=== PATIENT | male | born 1970 | race Caucasian/White ===

== ENCOUNTER 2017-12-22 12:21 | Inpatient (IN) | payer OTHER ==
[2017-12-22 14:14] VITALS: BMI 21.7
--- NOTE | 2017-12-22 17:14 | HP ---
COWS - Scale Resting Pulse: 0= [place] 80 or Below Sweatin= Chills/Flushing Restless Observation: 3= Extraneous Movement Pupil Size: 2= Moderately Dilated Bone or Joint Aches: 2= Severe Diffuse Aches Runny Nose/ Eye Tearin= Runny Nose/Eyes GI Upset > 30mins: 3= Vomiting/Diarrhea Tremor Observation: 2= Slight Tremor Visible Yawning Observation: 2= >3x During Session Anxiety or Irritability: 2=Irritable/Anxious Goose Flesh Skin: 0=Smooth Skin COWS Score: 19 Admission ROS S - HPI Chief Complaint: i need help to stop using heroin and cocaine Allergies/Adverse Reactions: Allergies Allergy/AdvReac Type Severity Reaction Status Date / Time No Known Allergies Allergy Verified 12/22/17 16:28 History of Present Illness: this 47 years old male with heroin and cocaine dependence,seekig detox, withdrawal symptom,last treatment [facility] 02/11/17 to 02/12/17 weight loss nicotine dependence anxiety,depression,insomnia no significant period of sobriety Exam Limitations: No Limitations - Ebola screening Have you traveled outside of the country in the last 21 days: No Have you been sick,other than usual withdrawal symptoms: No - Review of Systems Constitutional: Chills, Loss of Appetite, Malaise, Night Sweats, Changes in sleep, Weakness, Unintentional Wgt. Loss EENT: reports: Tearing, Nose Congestion Respiratory: reports: No Symptoms reported Cardiac: reports: No Symptoms Reported GI: reports: Diarrhea, Nausea, Vomiting, Abdominal cramping : reports: No Symptoms Reported Musculoskeletal: reports: Back Pain, Joint Pain, Muscle Pain Integumentary: reports: Dryness Neuro: reports: Headache, Tremors Endocrine: reports: No Symptoms Reported Hematology: reports: No Symptoms Reported Psychiatric: reports: No Sypmtoms Reported, Judgement Intact, Mood/Affect Appropiate, Orientated x3, Agitated, Depressed (insomnia) Patient History - Patient Medical History Hx Anemia: No Hx Asthma: No Hx Chronic Obstructive Pulmonary Disease (COPD): No Hx Cancer: No Hx Cardiac Disorders: No Hx Congestive Heart Failure: No Hx Hypertension: No Hx Hypercholesterolemia: No Hx Pacemaker: No HX Cerebrovascular Accident: No Hx Seizures: No Hx Dementia: No Hx Diabetes: No Hx Gastrointestinal Disorders: No Hx Liver Disease: No Hx Genitourinary Disorders: No Hx Sexually Transmitted Disorders: No Hx Renal Disease (ESRD): No Hx Thyroid Disease: No Hx Human Immunodeficiency Virus (HIV): No (last 07/15 negative) Hx Hepatitis C: No Hx Depression: Yes (anxiety) Hx Suicide Attempt: No Hx Bipolar Disorder: No Hx Schizophrenia: No Other Medical History: insomnia,no suicidal,no homicidal - Patient Surgical History Past Surgical History: No Hx Neurologic Surgery: No Hx Cataract Extraction: No Hx Cardiac Surgery: No Hx Lung Surgery: No Hx Breast Surgery: No Hx Breast Biopsy: No Hx Abdominal Surgery: No Hx Appendectomy: No Hx Cholecystectomy: No Hx Genitourinary Surgery: No Hx Section: No Hx Orthopedic Surgery: No Anesthesia Reaction: No - PPD History Previous Implant?: Yes Documented Results: Negative w/o proof Implanted On Prior [facility] Admission?: Yes Date: 06/07/15 Results: negative PPD to be Administered?: Yes - Smoking Cessation Smoking history: Current every day smoker Have you smoked in the past 12 months: Yes Aproximately how many cigarettes per day: 10 Hx Chewing Tobacco Use: No Initiated information on smoking cessation: Yes 'Breaking Loose' booklet given: 12/22/17 - Substance & Tx. History Hx Alcohol Use: Yes Hx Substance Use: Yes Substance Use Type: Alcohol, Heroin Hx Substance Use Treatment: Yes ([facility] 02/11/[facility] to 02/12/17 not completed) - Substances Abused Heroin Route: Inhalation Frequency: Daily Amount used: 6 bags daily Age of first use: 45 Date of Last Use: 12/22/17 Alcohol Route: Oral Frequency: 3-6 times per week Amount used: 1 pint vodka, 1-2 bottles beer Age of first use: 32 Date of Last Use: 12/21/17 Family Disease History - Family Disease History Family Disease History: Diabetes: Mother (HTN), Heart Disease: Mother Admission Physical Exam BHS - Vital Signs Vital Signs: Vital Signs - 24 hr 12/22/17 14:12 Temperature 97.9 F Pulse Rate 70 Respiratory 20 Rate Blood Pressure 132/88 - Physical General Appearance: Yes: Moderate Distress, Tremorous, Irritable, Sweating, Anxious HEENTM: Yes: Normal ENT Inspection, Pharynx Normal Respiratory: Yes: Lungs Clear, Normal Breath Sounds, No Respiratory Distress Neck: Yes: Within Normal Limits, Supple, Trachea in good position Breast: Yes: Within Normal Limits Cardiology: Yes: Within Normal Limits, Regular Rhythm, Regular Rate, S1, S2 Abdominal: Yes: Within Normal Limits, Normal Bowel Sounds, Soft, Other (right direct inguinal hernia) Genitourinary: Yes: Within Normal Limits Back: Yes: Within Normal Limits, Muscle Spasm Musculoskeletal: Yes: full range of Motion, Back pain, Joint Stiffness, Muscle Pain Extremities: Yes: Within Normal Limits, Tremors 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, Fully Oriented, Alert, Motor Strength 5/5 Integumentary: Yes: Dry Lymphatic: Yes: Within Normal Limits - Diagnostic (1) Opioid dependence with withdrawal Current Visit: Yes Status: Acute (2) Alcohol dependence with uncomplicated withdrawal Current Visit: Yes Status: Acute (3) Bipolar 1 disorder Current Visit: Yes Status: Chronic (4) Insomnia Current Visit: Yes Status: Chronic (5) Nicotine dependence Current Visit: Yes Status: Chronic (6) Inguinal hernia Current Visit: Yes Status: Chronic Qualifiers: Obstruction and gangrene presence: without obstruction or gangrene Laterality: unilateral Cleared for Admission [facility] - Detox or Rehab [facility] Level of Care: Medically Managed Detox Regimen/Protocol: Methadone/Librium [facility] Breath Alcohol Content Breath Alcohol Content: 0 Urine Drug Screen - Results Drug Screen Negative: No Urine Drug Screen Results: MAGDY-Cocaine, OPI-Opiates
[2017-12-22] MEDS ORDERED: IBUPROFEN 400 MG TABLET (FP) PO PRN (17:28)
[2017-12-22] MEDS ORDERED: P-EPHED 60MG/TRIPROLIDI 2.5MG TABLET PO PRN (17:28)
[2017-12-22] MEDS ORDERED: NICOTINE POLACRILEX 2 MG GUM BC PRN (17:28)
[2017-12-22] MEDS ORDERED: LOPERAMIDE HCL 2 MG CAPSULE PO PRN (17:28)
[2017-12-22] MEDS ORDERED: MENTHOL/PHENOL 1 EACH UD MM PRN (17:28)
[2017-12-22] MEDS ORDERED: hydrOXYzine PAMOATE 50 MG CAPSULE (FP) PO PRN (17:28)
[2017-12-22] MEDS ORDERED: ACETAMINOPHEN 325 MG TABLET (FP) PO PRN (17:28)
[2017-12-22] MEDS ORDERED: MAGNESIUM CITRATE 300 ML BOTTLE PO PRN (17:28)
[2017-12-22] MEDS ORDERED: chlordiazePOXIDE HCL 25 MG CAPSULE PO ONE (17:28)
[2017-12-22] MEDS ORDERED: guaiFENesin/D-METHORPHAN HB 10 ML UNIT-DOSE CUPS PO PRN (17:28)
[2017-12-22] MEDS ORDERED: MAGNESIUM HYDROX 2400MG/30ML ORAL SUSPENSION 30 ML CUP PO PRN (17:28)
[2017-12-22] MEDS ORDERED: MAG HYDROX/AL HYDROX/SIMETH 30 ML UNIT-DOSE CUP PO PRN (17:28)
[2017-12-22] MEDS ORDERED: chlordiazePOXIDE HCL 25 MG CAPSULE PO PRN ×3 (17:28→17:38)
[2017-12-22] MEDS ORDERED: METHADONE HCL 10 MG TABLET (FOR DETOX USE ONLY) PO ONE ×2 (17:32→23:00)
[2017-12-22] MEDS: NICOTINE 21 MG/24 HOURS TOPICAL PATCH TD SCH (18:55)
[2017-12-22] MEDS ORDERED: MELATONIN 5 MG TABLETS PO PRN (22:00)
[2017-12-22] MEDS: chlordiazePOXIDE HCL 25 MG CAPSULE PO SCH (22:46)
[2017-12-22] MEDS: THIAMINE HCL 100 MG TABLET (FP) PO SCH (22:46)
[2017-12-22] MEDS ORDERED: chlordiazePOXIDE HCL 25 MG CAPSULE PO SCH (23:00)
[2017-12-22 23:05] LABS: URINE APPEARANCE CLEAR; URINE BILIRUBIN NEGATIVE (<2.0 mg/dL); URINE COLOR AMBER; URINE GLUCOSE (UA) NEGATIVE (NEGATIVE); URINE KETONE TRACE (NEGATIVE); URINE LEUK ESTERASE NEGATIVE (NEGATIVE); URINE NITRITE NEGATIVE (NEGATIVE)
[2017-12-22 23:08] LABS: URINE PROTEIN 1+ (NEGATIVE)
[2017-12-22 23:09] LABS: EPI CELLS RARE /HPF (FEW); URINE MUCUS MANY
[2017-12-23] MEDS: chlordiazePOXIDE HCL 25 MG CAPSULE PO SCH ×4 (05:56→22:45)
--- NOTE | 2017-12-23 07:06 | CONSULT ---
[facility] Psychiatric Consult - Data Date of interview: 12/23/17 Admission source: Self-referred Identifying data: Mr Foster is a 47 years old male, father of 6 children, unemployed on SSI, homeless seeking detox treatment for alcohol and opioid Substance Abuse History: Reports history of alcohol and heroin use. Refer to addiction counselor's summary for further information Medical History: Unremarkable. Smokes 10 cigarettes daily Psychiatric History: Patient denies history of previous psychiatric treatment Physical/Sexual Abuse/Trauma History: Denies history of emotional, physical or sexual abuse as well as DV relationship Additional Comment: Reports history of one previous arrests on charges of armed robbery(felony). Reports seving 5 years in shelter. Denies being on parole at present Mental Status Exam - Mental Status Exam Alert and Oriented to: Time, Place, Person Cognitive Function: Fair Patient Appearance: Well Groomed Mood: Hopeful, Euthymic Patient Behavior: Cooperative Speech Pattern: Clear Voice Loudness: Normal Thought Process: Intact Hallucinations: Denies Suicidal Ideation: Denies Homicidal Ideation: Denies Insight/Judgement: Fair Sleep: Poorly Appetite: Good Muscle strength/Tone: Normal Gait/Station: Normal Psychiatric Findings - Problem List ([place] 1, 2,3) (1) Substance-induced sleep disorder Current Visit: Yes Status: Acute (2) Alcohol dependence with uncomplicated withdrawal Current Visit: No Status: Acute (3) Opioid dependence with withdrawal Current Visit: No Status: Acute (4) Nicotine dependence Current Visit: No Status: Chronic - Initial Treatment Plan Initial Treatment Plan: 1) Start Ambien 10 mg po HS prn for insomnia. Discussed Benefit vs Risks of medication with patient and he agreed to try it. 2) Continue inpatient detoxification
[2017-12-23 09:37] LABS: HEMATOCRIT 35.4 % (35.4-49); MCH 29.4 pg (25.7-33.7); MCHC 33.8 g/dl (32.0-35.9); MEAN PLT VOLUME 8.6 fl (7.5-11.1); PLATELET COUNT 283 K/MM3 (134-434); RBC 4.07 M/mm3 (4.00-5.60); RDW 13.3 % (11.9-15.9); WHITE BLOOD COUNT 7.8 K/mm3 (4.0-10.0)
[2017-12-23 09:38] LABS: ALBUMIN 3.2 g/dl (3.4-5.0); ANION GAP 6 (8-16); BLOOD UREA NITROGEN 19 mg/dL (7-18); CALCIUM 8.1 mg/dL (8.5-10.1); CHLORIDE 105 mmol/L (98-107); CO2 28 mmol/L (21-32); GLUCOSE,RANDOM 85 mg/dL (74-106); POTASSIUM 3.8 mmol/L (3.5-5.1); SODIUM 139 mmol/L (136-145)
[2017-12-23 09:41] LABS: ALK PHOS 68 U/L (45-117); BILIRUBIN,TOTAL 0.2 mg/dL (0.2-1.0); CREATININE 0.9 mg/dL (0.7-1.3); SGOT/AST 13 U/L (15-37); SGPT/ALT 20 U/L (12-78)
[2017-12-23] MEDS ORDERED: METHADONE HCL 10 MG TABLET (FOR DETOX USE ONLY) PO SCH (10:00)
--- NOTE | 2017-12-23 10:06 | EKG ---
Test Reason : Blood Pressure : / mmHG Vent. Rate : 054 BPM Atrial Rate : 054 BPM P-R Int : 140 ms QRS Dur : 096 ms QT Int : 470 ms P-R-T Axes : 072 061 065 degrees QTc Int : 445 ms SINUS BRADYCARDIA MODERATE VOLTAGE CRITERIA FOR LVH, MAY BE NORMAL VARIANT NONSPECIFIC T WAVE ABNORMALITY ABNORMAL ECG WHEN COMPARED WITH ECG OF 22-DEC-2017 18:45, NONSPECIFIC T WAVE ABNORMALITY NOW EVIDENT IN LATERAL LEADS Confirmed by JEFFREY HARP, KATIE ([id number]) on 12/23/2017 10:06:22 AM Referred By: Jong Bowers Confirmed By:KATIE MURPHY MD
--- NOTE | 2017-12-23 10:06 | EKG ---
Test Reason : Blood Pressure : / mmHG Vent. Rate : 055 BPM Atrial Rate : 055 BPM P-R Int : 134 ms QRS Dur : 088 ms QT Int : 454 ms P-R-T Axes : 084 063 058 degrees QTc Int : 434 ms POOR DATA QUALITY, INTERPRETATION MAY BE ADVERSELY AFFECTED SINUS BRADYCARDIA POSSIBLE LEFT ATRIAL ENLARGEMENT LEFT VENTRICULAR HYPERTROPHY ABNORMAL ECG NO PREVIOUS ECGS AVAILABLE Confirmed by JEFFREY HARP, KATIE ([id number]) on 12/23/2017 10:06:05 AM Referred By: Jong Bowers Confirmed By:KATIE MURPHY MD
[2017-12-23] MEDS: PRENATAL VITAMINS W/ FOLIC ACID TABLET (FP) PO SCH (10:35)
[2017-12-23] MEDS: NICOTINE 21 MG/24 HOURS TOPICAL PATCH TD SCH (10:37)
--- NOTE | 2017-12-23 18:24 | PN ---
[facility] CIWA - CIWA Score Nausea/Vomitin Muscle Tremors: 4-Moderate,w/Arms Extend Anxiety: 4-Mod. Anxious/Guarded Agitation: 3 Paroxysmal Sweats: 3 Orientation: 0-Oriented Tacttile Disturbances: 1-Very Mild Itch/Numbness Auditory Disturbances: 0-None Visual Disturbances: 0-None Headache: 1-Very Mild CIWA-Ar Total Score: 19 S COWS - Scale Resting Pulse: 0= [place] 80 or Below Sweatin= Chills/Flushing Restless Observation: 3= Extraneous Movement Pupil Size: 1= Pupils >than Normal Bone or Joint Aches: 2= Severe Diffuse Aches Runny Nose/ Eye Tearin= Runny Nose/Eyes GI Upset > 30mins: 2= Nausea/Diarrhea Tremor Observation of Outstretched Hands: 2= Slight Tremor Visible Yawning Observation: 1= 1-2x During Session Anxiety or Irritability: 2=Irritable/Anxious Goose Flesh Skin: 0=Smooth Skin COWS Score: 16 S Progress Note (SOAP) Subjective: Tremor, interrupted sleep, sweating Objective: 12/23/17 18:23 Last Vital Signs Temp Pulse Resp BP Pulse Ox 97.8 F 78 18 118/80 12/23/17 15:29 12/23/17 15:29 12/23/17 15:29 12/23/17 15:29 Laboratory Tests 12/22/17 12/23/17 12/23/17 22:20 07:45 07:45 WBC 7.8 RBC 4.07 Hgb 12.0 D Hct 35.4 MCV 87.0 MCH 29.4 MCHC 33.8 RDW 13.3 Plt Count 283 MPV 8.6 Sodium 139 Potassium 3.8 Chloride 105 Carbon Dioxide 28 Anion Gap 6 L BUN 19 H D Creatinine 0.9 D Creat Clearance w eGFR > 60 Random Glucose 85 Calcium 8.1 L Total Bilirubin 0.2 D AST 13 L ALT 20 D Alkaline Phosphatase 68 D Total Protein 6.0 L Albumin 3.2 L Urine Color Ksenia Urine Appearance Clear Urine pH 5.0 D Ur Specific [place] 1.034 Urine Protein 1+ H Urine Glucose (UA) Negative Urine Ketones Trace H Urine Blood Negative Urine Nitrite Negative Urine Bilirubin Negative Urine Urobilinogen 2.0 Ur Leukocyte Esterase Negative Urine WBC (Auto) 1 Urine RBC (Auto) 1 Ur Epithelial Cells Rare Urine Mucus Many RPR Titer 12/23/17 07:45 WBC RBC Hgb Hct MCV MCH MCHC RDW Plt Count MPV Sodium Potassium Chloride Carbon Dioxide Anion Gap BUN Creatinine Creat Clearance w eGFR Random Glucose Calcium Total Bilirubin AST ALT Alkaline Phosphatase Total Protein Albumin Urine Color Urine Appearance Urine pH Ur Specific [place] Urine Protein Urine Glucose (UA) Urine Ketones Urine Blood Urine Nitrite Urine Bilirubin Urine Urobilinogen Ur Leukocyte Esterase Urine WBC (Auto) Urine RBC (Auto) Ur Epithelial Cells Urine Mucus RPR Titer Nonreactive Labs reviewed: abnormal UA Assessment: 12/23/17 18:23 Withdrawal symptoms Noted with abnormal UA Plan: Continue detox Abnormal UA: encouraged PO water hydration, repeat UA
[2017-12-23] MEDS: THIAMINE HCL 100 MG TABLET (FP) PO SCH (22:45)
[2017-12-23] MEDS: ZOLPIDEM TARTRATE 5 MG TABLET PO PRN (22:46)
[2017-12-23] MEDS ORDERED: chlordiazePOXIDE HCL 25 MG CAPSULE PO SCH (23:00)
[2017-12-24] MEDS: chlordiazePOXIDE HCL 25 MG CAPSULE PO SCH ×3 (05:41→18:15)
[2017-12-24 10:35] LABS: URINE APPEARANCE CLEAR; URINE BILIRUBIN NEGATIVE (<2.0 mg/dL); URINE COLOR LTYELLOW; URINE GLUCOSE (UA) NEGATIVE (NEGATIVE); URINE KETONE NEGATIVE (NEGATIVE); URINE LEUK ESTERASE NEGATIVE (NEGATIVE); URINE NITRITE NEGATIVE (NEGATIVE); URINE PROTEIN NEGATIVE (NEGATIVE); URINE UROBILINOGEN NEGATIVE mg/dL (0.2-1.0)
[2017-12-24] MEDS: PRENATAL VITAMINS W/ FOLIC ACID TABLET (FP) PO SCH (10:39)
[2017-12-24] MEDS: METHADONE HCL 5 MG TABLET (FOR DETOX USE ONLY) PO SCH (10:39)
[2017-12-24] MEDS: NICOTINE 21 MG/24 HOURS TOPICAL PATCH TD SCH (10:39)
--- NOTE | 2017-12-24 19:20 | PN ---
S CIWA - CIWA Score Nausea/Vomitin Muscle Tremors: 3 Anxiety: 2 Agitation: 3 Paroxysmal Sweats: 3 Orientation: 0-Oriented Tacttile Disturbances: 0-None Auditory Disturbances: 0-None Visual Disturbances: 0-None Headache: 0-None Present CIWA-Ar Total Score: 14 [facility] COWS - Scale Resting Pulse: 0= [place] 80 or Below Sweatin=Flushed/Facial Moisture Restless Observation: 3= Extraneous Movement Pupil Size: 0= Normal to Room Light Bone or Joint Aches: 1= Mild Discomfort Runny Nose/ Eye Tearin= Nasal Congestion GI Upset > 30mins: 2= Nausea/Diarrhea Tremor Observation of Outstretched Hands: 2= Slight Tremor Visible Yawning Observation: 1= 1-2x During Session Anxiety or Irritability: 1=Feels Anxious/Irritable Goose Flesh Skin: 0=Smooth Skin COWS Score: 13 [facility] Progress Note (SOAP) Subjective: sleep disturbance sweats shakes Objective: 12/24/17 19:18 A & O x 3 Ambulating steadily within unit Vital Signs Temperature 98.2 F 12/24/17 18:30 Pulse Rate 68 12/24/17 18:30 Respiratory Rate 16 12/24/17 18:30 Blood Pressure 107/63 12/24/17 18:30 O2 Sat by Pulse Oximetry (%) Laboratory Last Values WBC 7.8 K/mm3 (4.0-10.0) 12/23/17 07:45 RBC 4.07 M/mm3 (4.00-5.60) 12/23/17 07:45 Hgb 12.0 GM/dL (11.7-16.9) D 12/23/17 07:45 Hct 35.4 % (35.4-49) 12/23/17 07:45 MCV 87.0 fl (80-96) 12/23/17 07:45 MCH 29.4 pg (25.7-33.7) 12/23/17 07:45 MCHC 33.8 g/dl (32.0-35.9) 12/23/17 07:45 RDW 13.3 % (11.9-15.9) 12/23/17 07:45 Plt Count 283 K/MM3 (134-434) 12/23/17 07:45 MPV 8.6 fl (7.5-11.1) 12/23/17 07:45 Sodium 139 mmol/L (136-145) 12/23/17 07:45 Potassium 3.8 mmol/L (3.5-5.1) 12/23/17 07:45 Chloride 105 mmol/L (98-107) 12/23/17 07:45 Carbon Dioxide 28 mmol/L (21-32) 12/23/17 07:45 Anion Gap 6 (8-16) L 12/23/17 07:45 BUN 19 mg/dL (7-18) H D 12/23/17 07:45 Creatinine 0.9 mg/dL (0.7-1.3) D 12/23/17 07:45 Creat Clearance w eGFR > 60 (>60) 12/23/17 07:45 Random Glucose 85 mg/dL (74-106) 12/23/17 07:45 Calcium 8.1 mg/dL (8.5-10.1) L 12/23/17 07:45 Total Bilirubin 0.2 mg/dL (0.2-1.0) D 12/23/17 07:45 AST 13 U/L (15-37) L 12/23/17 07:45 ALT 20 U/L (12-78) D 12/23/17 07:45 Alkaline Phosphatase 68 U/L (45-117) D 12/23/17 07:45 Total Protein 6.0 g/dl (6.4-8.2) L 12/23/17 07:45 Albumin 3.2 g/dl (3.4-5.0) L 12/23/17 07:45 Urine Color Ltyellow 12/24/17 08:20 Urine Appearance Clear 12/24/17 08:20 Urine pH 6.0 (5.0-8.0) 12/24/17 08:20 Ur Specific [place] 1.014 (1.001-1.035) 12/24/17 08:20 Urine Protein Negative (NEGATIVE) 12/24/17 08:20 Urine Glucose (UA) Negative (NEGATIVE) 12/24/17 08:20 Urine Ketones Negative (NEGATIVE) 12/24/17 08:20 Urine Blood Negative (NEGATIVE) 12/24/17 08:20 Urine Nitrite Negative (NEGATIVE) 12/24/17 08:20 Urine Bilirubin Negative (<2.0 mg/dL) 12/24/17 08:20 Urine Urobilinogen Negative mg/dL (0.2-1.0) 12/24/17 08:20 Ur Leukocyte Esterase Negative (NEGATIVE) 12/24/17 08:20 Urine WBC (Auto) 1 /hpf (3-5) 12/22/17 22:20 Urine RBC (Auto) 1 /hpf (0-3) 12/22/17 22:20 Ur Epithelial Cells Rare /HPF (FEW) 12/22/17 22:20 Urine Mucus Many 12/22/17 22:20 RPR Titer Nonreactive (NONREACTIVE) 12/23/17 07:45 labs noted Assessment: 12/24/17 19:19 withdrawal sx Plan: continue detox increase hydration (water)
[2017-12-24] MEDS: THIAMINE HCL 100 MG TABLET (FP) PO SCH (22:43)
[2017-12-24] MEDS: chlordiazePOXIDE 5 MG CAPSULE PO SCH (22:43)
[2017-12-24] MEDS: ZOLPIDEM TARTRATE 5 MG TABLET PO PRN (22:44)
[2017-12-24] MEDS ORDERED: chlordiazePOXIDE 5 MG CAPSULE PO SCH (23:00)
[2017-12-25] MEDS: chlordiazePOXIDE 5 MG CAPSULE PO SCH ×3 (05:41→17:42)
[2017-12-25] MEDS: PRENATAL VITAMINS W/ FOLIC ACID TABLET (FP) PO SCH (10:32)
[2017-12-25] MEDS: METHADONE HCL 5 MG TABLET (FOR DETOX USE ONLY) PO SCH (10:32)
[2017-12-25] MEDS: NICOTINE 21 MG/24 HOURS TOPICAL PATCH TD SCH (10:33)
--- NOTE | 2017-12-25 22:04 | PN ---
[facility] Progress Note (SOAP) Subjective: Tremors, Fatigue, Interrupted Sleep. Objective: PATIENT A & O X 3. NO ACUTE DISTRESS. 12/25/17 22:03 Vital Signs Temperature 97.6 F 12/25/17 17:41 Pulse Rate 94 H 12/25/17 17:41 Respiratory Rate 16 12/25/17 17:41 Blood Pressure 98/62 12/25/17 17:41 O2 Sat by Pulse Oximetry (%) Laboratory Tests 12/22/17 12/23/17 12/23/17 22:20 07:45 07:45 WBC 7.8 RBC 4.07 Hgb 12.0 D Hct 35.4 MCV 87.0 MCH 29.4 MCHC 33.8 RDW 13.3 Plt Count 283 MPV 8.6 Sodium 139 Potassium 3.8 Chloride 105 Carbon Dioxide 28 Anion Gap 6 L BUN 19 H D Creatinine 0.9 D Creat Clearance w eGFR > 60 Random Glucose 85 Calcium 8.1 L Total Bilirubin 0.2 D AST 13 L ALT 20 D Alkaline Phosphatase 68 D Total Protein 6.0 L Albumin 3.2 L Urine Color Ksenia Urine Appearance Clear Urine pH 5.0 D Ur Specific [place] 1.034 Urine Protein 1+ H Urine Glucose (UA) Negative Urine Ketones Trace H Urine Blood Negative Urine Nitrite Negative Urine Bilirubin Negative Urine Urobilinogen 2.0 Ur Leukocyte Esterase Negative Urine WBC (Auto) 1 Urine RBC (Auto) 1 Ur Epithelial Cells Rare Urine Mucus Many RPR Titer 12/23/17 12/24/17 07:45 08:20 WBC RBC Hgb Hct MCV MCH MCHC RDW Plt Count MPV Sodium Potassium Chloride Carbon Dioxide Anion Gap BUN Creatinine Creat Clearance w eGFR Random Glucose Calcium Total Bilirubin AST ALT Alkaline Phosphatase Total Protein Albumin Urine Color Ltyellow Urine Appearance Clear Urine pH 6.0 Ur Specific [place] 1.014 Urine Protein Negative Urine Glucose (UA) Negative Urine Ketones Negative Urine Blood Negative Urine Nitrite Negative Urine Bilirubin Negative Urine Urobilinogen Negative Ur Leukocyte Esterase Negative Urine WBC (Auto) Urine RBC (Auto) Ur Epithelial Cells Urine Mucus RPR Titer Nonreactive LABS NOTED. RESULTS OF REPEAT UA NOTED. 12/25/17 22:04 Assessment: 12/25/17 22:03 WITHDRAWAL SYMPTOMS. Plan: CONTINUE DETOX.
[2017-12-25] MEDS: THIAMINE HCL 100 MG TABLET (FP) PO SCH (22:22)
[2017-12-25] MEDS: ZOLPIDEM TARTRATE 5 MG TABLET PO PRN (22:23)
[2017-12-25] MEDS: chlordiazePOXIDE HCL 10 MG CAPSULE PO SCH (22:23)
[2017-12-25] MEDS ORDERED: chlordiazePOXIDE HCL 10 MG CAPSULE PO SCH (23:00)
[2017-12-26] MEDS: chlordiazePOXIDE HCL 10 MG CAPSULE PO SCH (06:00)
[2017-12-26 06:11] VITALS: BP 127/85; PULSE 71; TEMP 96.9
--- NOTE | 2017-12-26 07:44 | DS ---
[facility] Detox Discharge Summary Admission Date: 12/22/17 Discharge Date: 12/26/17 - History Present History: Alcohol Dependence, Opioid Dependence Additional Comments: Laboratory Tests 12/22/17 12/23/17 12/23/17 22:20 07:45 07:45 WBC 7.8 RBC 4.07 Hgb 12.0 D Hct 35.4 MCV 87.0 MCH 29.4 MCHC 33.8 RDW 13.3 Plt Count 283 MPV 8.6 Sodium 139 Potassium 3.8 Chloride 105 Carbon Dioxide 28 Anion Gap 6 L BUN 19 H D Creatinine 0.9 D Creat Clearance w eGFR > 60 Random Glucose 85 Calcium 8.1 L Total Bilirubin 0.2 D AST 13 L ALT 20 D Alkaline Phosphatase 68 D Total Protein 6.0 L Albumin 3.2 L Urine Color Ksenia Urine Appearance Clear Urine pH 5.0 D Ur Specific [place] 1.034 Urine Protein 1+ H Urine Glucose (UA) Negative Urine Ketones Trace H Urine Blood Negative Urine Nitrite Negative Urine Bilirubin Negative Urine Urobilinogen 2.0 Ur Leukocyte Esterase Negative Urine WBC (Auto) 1 Urine RBC (Auto) 1 Ur Epithelial Cells Rare Urine Mucus Many RPR Titer 12/23/17 12/24/17 07:45 08:20 WBC RBC Hgb Hct MCV MCH MCHC RDW Plt Count MPV Sodium Potassium Chloride Carbon Dioxide Anion Gap BUN Creatinine Creat Clearance w eGFR Random Glucose Calcium Total Bilirubin AST ALT Alkaline Phosphatase Total Protein Albumin Urine Color Ltyellow Urine Appearance Clear Urine pH 6.0 Ur Specific [place] 1.014 Urine Protein Negative Urine Glucose (UA) Negative Urine Ketones Negative Urine Blood Negative Urine Nitrite Negative Urine Bilirubin Negative Urine Urobilinogen Negative Ur Leukocyte Esterase Negative Urine WBC (Auto) Urine RBC (Auto) Ur Epithelial Cells Urine Mucus RPR Titer Nonreactive Pertinent Past History: bipolar insomnia nicotine dep inguinal hernia - Physical Exam Results Vital Signs: Vital Signs Temperature 96.9 F L 12/26/17 06:11 Pulse Rate 71 12/26/17 06:11 Respiratory Rate 18 12/26/17 06:11 Blood Pressure 127/85 12/26/17 06:11 O2 Sat by Pulse Oximetry (%) Pertinent Admission Physical Exam Findings: withdrawal sx's - Treatment Hospital Course: Discharged Condition Good - Medication Discharge Medications: Ambulatory Orders NK [No Known Home Medication] 12/25/17 - Diagnosis (1) Alcohol dependence with uncomplicated withdrawal Status: Acute (2) Opioid dependence with withdrawal Status: Acute (3) Bipolar 1 disorder Status: Chronic (4) Inguinal hernia Status: Chronic Qualifiers: Obstruction and gangrene presence: without obstruction or gangrene Laterality: unilateral Recurrence: recurrent Qualified Code(s): K40.91 - Unilateral inguinal hernia, without obstruction or gangrene, recurrent (5) Nicotine dependence Status: Chronic Qualifiers: Nicotine product type: cigarettes Substance use status: uncomplicated Qualified Code(s): F17.210 - Nicotine dependence, cigarettes, uncomplicated - AMA Did Patient Leave Against Medical Advice: Yes (CLIENT STATES CANNOT COMPLETE TXMENT DUE TO A PRIOR APPT)
--- NOTE | 2017-12-26 07:48 | PN ---
[facility] Progress Note Note: CLIENT SIGNED OUT AMA. STATES HAS A PRIOR ENGAGEMENT. RISK IN ABRUPTING TXMENT TO INCLUDE OVERDOSE AND DISCUSSED. CLIENT VERBALIZED UNDERSTANDING. LEFT UNIT MEDICALLY STABLE A/O X3 NAD. Vital Signs Temperature 96.9 F L 12/26/17 06:11 Pulse Rate 71 12/26/17 06:11 Respiratory Rate 18 12/26/17 06:11 Blood Pressure 127/85 12/26/17 06:11 O2 Sat by Pulse Oximetry (%)
[2017-12-26] MEDS ORDERED: METHADONE HCL 10 MG TABLET (FOR DETOX USE ONLY) PO SCH (10:00)
[2017-12-27] MEDS ORDERED: METHADONE HCL 5 MG TABLET (FOR DETOX USE ONLY) PO SCH (06:00)
== END 2017-12-26 06:16 | disposition left against medical advice (07) | DRG 770 ==
LOC: YASAS 12:21 → Y3N 17:48
PROVIDERS: ADMIT Internal Medicine; ATTEND Internal Medicine
PROC: HZ2ZZZZ Detoxification Services for Substance Abuse Treatment (ICD-10-PCS; principal; 2017-12-22)
DX: F11.23 Opioid dependence with withdrawal (principal); F10.230 Alcohol dependence with withdrawal, uncomplicated; F17.210 Nicotine dependence, cigarettes, uncomplicated; F31.89 Other bipolar disorder; F19.282 Other psychoactive substance dependence with psychoactive substance-induced sleep disorder; G47.00 Insomnia, unspecified; K40.91 Unilateral inguinal hernia, without obstruction or gangrene, recurrent
CPT/HCPCS: 36415; 80053; 81003; 81015; 85027; 86593; 93005; 93010

== ENCOUNTER 2018-04-02 11:47 | Inpatient (IN) | payer OTHER ==
[2018-04-02 12:44] VITALS: BMI 24.3
--- NOTE | 2018-04-02 16:59 | HP ---
COWS - Scale Resting Pulse: 0= [place] 80 or Below Sweatin= Chills/Flushing Restless Observation: 1= Difficult to Sit Still Pupil Size: 0= Normal to Room Light Bone or Joint Aches: 1= Mild Discomfort Runny Nose/ Eye Tearin= Runny Nose/Eyes GI Upset > 30mins: 2= Nausea/Diarrhea Tremor Observation: 1= Tremor [place], Not Seen Yawning Observation: 1= 1-2x During Session Anxiety or Irritability: 2=Irritable/Anxious Goose Flesh Skin: 3=Piloerection COWS Score: 14 Admission ROS S - [facility] Chief Complaint: opioid withdrawal symptoms Allergies/Adverse Reactions: Allergies Allergy/AdvReac Type Severity Reaction Status Date / Time No Known Allergies Allergy Verified 04/02/18 14:39 History of Present Illness: 47 yo male with hx of cocaine, nicotine heroin (nasal) dependence is here seeking detox. Last [facility] 12[facility] - 12/26/17 left AMA. PMHX: (R) Inguinal hernia, insomnia, bipolar. Denies suicidal / homicidal ideation. Longest period of sobriety 10 years, reports relapse five years ago. Denies hx OD, of seizures or blackouts. Exam Limitations: No Limitations - Ebola screening Have you traveled outside of the country in the last 21 days: No Have you had contact with anyone from an Ebola affected area: No Have you been sick,other than usual withdrawal symptoms: No Do you have a fever: No - Review of Systems Constitutional: Chills, Changes in sleep, Unintentional Wgt. Loss (10 lbs x 2 months) EENT: reports: Other (wears glasses) Respiratory: reports: No Symptoms reported Cardiac: reports: No Symptoms Reported GI: reports: Diarrhea, Nausea, Poor Appetite, Poor Fluid Intake, Vomiting : reports: No Symptoms Reported Musculoskeletal: reports: Back Pain, Joint Pain Integumentary: reports: No Symptoms Reported Neuro: reports: No Symptoms reported Endocrine: reports: Increased Thirst Hematology: reports: No Symptoms Reported Psychiatric: reports: Orientated x3, Anxious Other Systems: Reviewed and Negative Patient History - Patient Medical History Hx Anemia: No Hx Asthma: No Hx Chronic Obstructive Pulmonary Disease (COPD): No Hx Cancer: No Hx Cardiac Disorders: No Hx Congestive Heart Failure: No Hx Hypertension: No Hx Hypercholesterolemia: No Hx Pacemaker: No HX Cerebrovascular Accident: No Hx Seizures: No Hx Dementia: No Hx Diabetes: No Hx Gastrointestinal Disorders: No Hx Liver Disease: No Hx Genitourinary Disorders: No Hx Sexually Transmitted Disorders: No Hx Renal Disease (ESRD): No Hx Thyroid Disease: No Hx Human Immunodeficiency Virus (HIV): No (last 07/15 negative, declines testing at this time ) Hx Hepatitis C: No Hx Depression: Yes (anxiety) Hx Suicide Attempt: No Hx Bipolar Disorder: No Hx Schizophrenia: No - Patient Surgical History Past Surgical History: No Hx Neurologic Surgery: No Hx Cataract Extraction: No Hx Cardiac Surgery: No Hx Lung Surgery: No Hx Breast Surgery: No Hx Breast Biopsy: No Hx Abdominal Surgery: No Hx Appendectomy: No Hx Cholecystectomy: No Hx Genitourinary Surgery: No Hx Section: No Hx Orthopedic Surgery: No Anesthesia Reaction: No - PPD History Previous Implant?: No Documented Results: Negative w/proof Date: 06/07/15 Results: negative PPD to be Administered?: Yes - Smoking Cessation Smoking history: Current every day smoker Have you smoked in the past 12 months: Yes Aproximately how many cigarettes per day: 10 Hx Chewing Tobacco Use: No Initiated information on smoking cessation: Yes 'Breaking Loose' booklet given: 04/02/18 - Substance & Tx. History Hx Alcohol Use: Yes Hx Substance Use: Yes Substance Use Type: Cocaine, Heroin Hx Substance Use Treatment: Yes ([facility] 12/22/17 - 12/26/17 left [facility] ) - Substances Abused Alcohol Route: Oral Frequency: Daily Amount used: Vodka - 1 pint, 1 40oz - Beer Age of first use: 32 Date of Last Use: 03/31/18 Heroin Route: Inhalation Frequency: Daily Amount used: 5 bags Age of first use: 40 Date of Last Use: 04/02/18 Family Disease History - Family Disease History Family Disease History: Diabetes: Mother (HTN), Heart Disease: Mother Admission Physical Exam S - Vital Signs Vital Signs: Vital Signs - 24 hr 04/02/18 12:39 Temperature 98.4 F Pulse Rate 74 Respiratory 20 Rate Blood Pressure 141/86 - Physical General Appearance: Yes: Mild Distress, Thin, Sweating, Anxious HEENTM: Yes: Within Normal Limits, Other (wears glasses) Respiratory: Yes: Chest Non-Tender, Lungs Clear, Normal Breath Sounds, No Respiratory Distress, No Accessory Muscle Use Neck: Yes: Within Normal Limits Breast: Yes: Breast Exam Deferred Cardiology: Yes: Regular Rhythm, Regular Rate Abdominal: Yes: Normal Bowel Sounds, Non Tender, Flat, Soft Genitourinary: Yes: Within Normal Limits Back: Yes: Normal Inspection Musculoskeletal: Yes: full range of Motion, Gait Steady, Pelvis Stable, Back pain Extremities: Yes: Normal Capillary Refill, Normal Inspection, Normal Range of Motion, Non-Tender Neurological: Yes: 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 intact, Fully Oriented, Alert, Motor Strength 5/5, Depressed Affect Integumentary: Yes: Normal Color, Warm, Diaphoresis Lymphatic: Yes: Within Normal Limits - Diagnostic (1) Opioid dependence with withdrawal Current Visit: Yes Status: Acute (2) Sleeping difficulty Current Visit: Yes Status: Acute (3) Nicotine dependence Current Visit: Yes Status: Chronic Qualifiers: Nicotine product type: cigarettes Substance use status: uncomplicated Qualified Code(s): F17.210 - Nicotine dependence, cigarettes, uncomplicated Cleared for Admission [facility] - Detox or Rehab [facility] Level of Care: Medically Managed Detox Regimen/Protocol: Methadone [facility] Breath Alcohol Content Breath Alcohol Content: 0 Urine Drug Screen - Results Drug Screen Negative: No Urine Drug Screen Results: MAGDY-Cocaine, OPI-Opiates
[2018-04-02] MEDS ORDERED: MENTHOL/PHENOL 1 EACH UD MM PRN (17:00)
[2018-04-02] MEDS ORDERED: guaiFENesin/D-METHORPHAN HB 10 ML UNIT-DOSE CUPS PO PRN (17:00)
[2018-04-02] MEDS ORDERED: MAGNESIUM CITRATE 300 ML BOTTLE PO PRN (17:00)
[2018-04-02] MEDS ORDERED: MAGNESIUM HYDROX 2400MG/30ML ORAL SUSPENSION 30 ML CUP PO PRN (17:00)
[2018-04-02] MEDS ORDERED: NICOTINE POLACRILEX 2 MG GUM BC PRN (17:00)
[2018-04-02] MEDS ORDERED: LOPERAMIDE HCL 2 MG CAPSULE PO PRN (17:00)
[2018-04-02] MEDS ORDERED: MAG HYDROX/AL HYDROX/SIMETH 30 ML UNIT-DOSE CUP PO PRN (17:00)
[2018-04-02] MEDS ORDERED: P-EPHED 60MG/TRIPROLIDI 2.5MG TABLET PO PRN (17:00)
[2018-04-02] MEDS ORDERED: METHADONE HCL 10 MG TABLET (FOR DETOX USE ONLY) PO ONE ×2 (17:45→23:00)
[2018-04-02] MEDS ORDERED: MELATONIN 5 MG TABLETS PO PRN (22:00)
[2018-04-02] MEDS: diazePAM 5 MG TABLET PO PRN (22:03)
[2018-04-02] MEDS: THIAMINE HCL 100 MG TABLET (FP) PO SCH (22:03)
[2018-04-03 01:50] LABS: URINE APPEARANCE CLEAR; URINE BILIRUBIN NEGATIVE (<2.0 mg/dL); URINE COLOR LTYELLOW; URINE GLUCOSE (UA) NEGATIVE (NEGATIVE); URINE KETONE NEGATIVE (NEGATIVE); URINE LEUK ESTERASE NEGATIVE (NEGATIVE); URINE NITRITE NEGATIVE (NEGATIVE); URINE PROTEIN NEGATIVE (NEGATIVE); URINE UROBILINOGEN NEGATIVE mg/dL (0.2-1.0)
[2018-04-03] MEDS ORDERED: METHADONE HCL 10 MG TABLET (FOR DETOX USE ONLY) PO ONE (10:00)
[2018-04-03] MEDS: NICOTINE 14 MG/24 HOURS TOPICAL PATCH TD SCH (10:02)
[2018-04-03] MEDS: PRENATAL VITAMINS W/ FOLIC ACID TABLET (FP) PO SCH (10:02)
[2018-04-03] MEDS: diazePAM 5 MG TABLET PO PRN ×2 (10:03→22:12)
--- NOTE | 2018-04-03 10:28 | PN ---
BHS COWS - Scale Resting Pulse: 0= [place] 80 or Below Sweatin= Chills/Flushing Restless Observation: 3= Extraneous Movement Pupil Size: 2= Moderately Dilated Bone or Joint Aches: 1= Mild Discomfort Runny Nose/ Eye Tearin= None GI Upset > 30mins: 0= None Tremor Observation of Outstretched Hands: 2= Slight Tremor Visible Yawning Observation: 2= >3x During Session Anxiety or Irritability: 2=Irritable/Anxious Goose Flesh Skin: 0=Smooth Skin COWS Score: 13 BHS Progress Note (SOAP) Subjective: ANXIETY, SWEATS,IRRITABILITY,AGITATIONS,INTERMITTENT SLEEP. Objective: 04/03/18 10:28 Vital Signs 04/03/18 04/03/18 04/03/18 03:20 06:15 06:30 Temperature 97.1 F L Pulse Rate 57 L Respiratory 18 18 18 Rate Blood Pressure 135/77 04/03/18 09:10 Temperature 98.5 F Pulse Rate 61 Respiratory 18 Rate Blood Pressure 127/78 Laboratory Tests 04/02/18 23:20 Urine Color Ltyellow Urine Appearance Clear Urine pH 5.0 Ur Specific [place] 1.010 Urine Protein Negative Urine Glucose (UA) Negative Urine Ketones Negative Urine Blood Negative Urine Nitrite Negative Urine Bilirubin Negative Urine Urobilinogen Negative Ur Leukocyte Esterase Negative OTHER LABS PENDING Assessment: 04/03/18 10:28 WITHDRAWAL SX Plan: CONTINUE DETOX FOLLOW UP WITH PSYCH EVAL TODAY
[2018-04-03 10:50] LABS: HEMOGLOBIN 13.4 GM/dL (11.7-16.9); MCH 29.5 pg (25.7-33.7); MCHC 33.5 g/dl (32.0-35.9); MEAN CELL VOLUME 88.2 fl (80-96); PLATELET COUNT 396 K/MM3 (134-434); RBC 4.54 M/mm3 (4.00-5.60); RDW 13.3 % (11.9-15.9); WHITE BLOOD COUNT 8.3 K/mm3 (4.0-10.0)
[2018-04-03 10:51] LABS: CHLORIDE 104 mmol/L (98-107); POTASSIUM 4.7 mmol/L (3.5-5.1); SODIUM 139 mmol/L (136-145)
[2018-04-03 11:23] LABS: ALBUMIN 4.4 g/dl (3.4-5.0); ALK PHOS 82 U/L (45-117); ANION GAP 8 MMOL/L (8-16); BILIRUBIN,TOTAL 0.4 mg/dL (0.2-1.0); BLOOD UREA NITROGEN 13 mg/dL (7-18); CALCIUM 8.8 mg/dL (8.5-10.1); CO2 27 mmol/L (21-32); CREATININE 1.1 mg/dL (0.7-1.3); GLUCOSE,RANDOM 76 mg/dL (74-106); SGOT/AST 15 U/L (15-37); SGPT/ALT 14 U/L (12-78); TOT PROT 7.4 g/dl (6.4-8.2)
[2018-04-03] MEDS: IBUPROFEN 400 MG TABLET (FP) PO PRN (12:31)
--- NOTE | 2018-04-03 12:31 | EKG ---
Test Reason : Blood Pressure : / mmHG Vent. Rate : 063 BPM Atrial Rate : 063 BPM P-R Int : 134 ms QRS Dur : 084 ms QT Int : 398 ms P-R-T Axes : 075 064 069 degrees QTc Int : 407 ms NORMAL SINUS RHYTHM VOLTAGE CRITERIA FOR LEFT VENTRICULAR HYPERTROPHY ABNORMAL ECG WHEN COMPARED WITH ECG OF 23-DEC-2017 06:43, NONSPECIFIC T WAVE ABNORMALITY NO LONGER EVIDENT IN INFERIOR LEADS Confirmed by JEFFREY HARP, KATIE ([id number]) on 04/03/2018 12:30:48 PM Referred By: Confirmed By:KATIE MURPHY MD
--- NOTE | 2018-04-03 17:06 | CONSULT ---
[facility] Psychiatric Consult - Data Date of interview: 04/03/18 Admission source: [facility] Identifying data: Readmission to [facility] for this 47 y/o male, self- refereed for detoxification treatment (heroin and cocaine dependence).Currently on [address].Patient is ,a father of six,domiciled,unemployed and supported on SSI benefits. Substance Abuse History: Discussed in this interview.Refer to this section of [facility] report for details : Smoking history: Current every day smoker. Have you smoked in the past 12 months: Yes. Aproximately how many cigarettes per day: 10. Hx Chewing Tobacco Use: No. Initiated information on smoking cessation: Yes. 'Breaking Loose' booklet given: 04/02/18. - Substance & Tx. History. Hx Alcohol Use: Yes. Hx Substance Use: Yes. Substance Use Type: Cocaine, Heroin. Hx Substance Use Treatment: Yes ([facility] 12/22/17 - 12/26/17 left AMA ). - Substances Abused. Alcohol. Route: Oral. Frequency: Daily. Amount used: Vodka - 1 pint, 1 40oz - Beer. Age of first use: 32. Date of Last Use: . Heroin. Route: Inhalation. Frequency: Daily. Amount used: 5 bags. Age of first use: 40. Date of Last Use: 04/02/18 Medical History: Right inguinal hernia (awaiting elective surgery). Psychiatric History: Disagnosed with Bipolar Disorder.Patient denies history of psychiatric hospitalizations.Last visited a psychiatric OPD setting in 1980 ( [facility]).Mr Foster has not taken psychotropic medications sine 1985 and he has no recollection of the names of the drugs.Patient denies history of suicide attempts. Physical/Sexual Abuse/Trauma History: No history as per self-report. Additional Comment: Urine Drug Screen Results: MAGDY-Cocaine, OPI-Opiates.Noted. Mental Status Exam - Mental Status Exam Alert and Oriented to: Time, Place, Person Cognitive Function: Good Patient Appearance: Well Groomed Mood: Hopeful, Euthymic Affect: Appropriate, Normal Range Patient Behavior: Appropriate, Cooperative Speech Pattern: Clear, Appropriate Voice Loudness: Normal Thought Process: Intact, Goal Oriented Thought Disorder: Not Present Hallucinations: Denies Suicidal Ideation: Denies Homicidal Ideation: Denies Insight/Judgement: Poor Sleep: Poorly, Difficulty falling asleep Appetite: Good Muscle strength/Tone: Normal Gait/Station: Normal Psychiatric Findings - Problem List ([place] 1, 2,3) (1) Opioid dependence with withdrawal Current Visit: Yes Status: Acute (2) Cocaine dependence Current Visit: Yes Status: Acute (3) Nicotine dependence Current Visit: Yes Status: Acute Qualifiers: Nicotine product type: cigarettes Substance use status: in withdrawal Qualified Code(s): F17.213 - Nicotine dependence, cigarettes, with withdrawal (4) Insomnia Current Visit: Yes Status: Acute - Initial Treatment Plan Initial Treatment Plan: Psychoeducation.Sleep hygiene discussed in this session.Detoxification.Ambien 10 mg po hs prn.Ordered.Patient is made aware of the risk of parasomnias.Mr Foster agrees to this plan of care.Observation.
[2018-04-03] MEDS: THIAMINE HCL 100 MG TABLET (FP) PO SCH (22:12)
[2018-04-03] MEDS: ZOLPIDEM TARTRATE 10 MG TABLET (PARK CARE ONLY) PO PRN (22:13)
[2018-04-03] MEDS: ACETAMINOPHEN 325 MG TABLET (FP) PO PRN (23:11)
[2018-04-04] MEDS: IBUPROFEN 400 MG TABLET (FP) PO PRN (03:27)
[2018-04-04] MEDS ORDERED: METHADONE HCL 5 MG TABLET (FOR DETOX USE ONLY) PO ONE (10:00)
[2018-04-04] MEDS: PRENATAL VITAMINS W/ FOLIC ACID TABLET (FP) PO SCH (10:02)
[2018-04-04] MEDS: NICOTINE 14 MG/24 HOURS TOPICAL PATCH TD SCH (10:03)
[2018-04-04] MEDS: diazePAM 5 MG TABLET PO PRN ×2 (10:05→22:07)
--- NOTE | 2018-04-04 12:22 | PN ---
S COWS - Scale Resting Pulse: 0= [place] 80 or Below Sweatin= Chills/Flushing Restless Observation: 3= Extraneous Movement Pupil Size: 2= Moderately Dilated Bone or Joint Aches: 1= Mild Discomfort Runny Nose/ Eye Tearin= None GI Upset > 30mins: 0= None Tremor Observation of Outstretched Hands: 2= Slight Tremor Visible Yawning Observation: 0= None Anxiety or Irritability: 2=Irritable/Anxious Goose Flesh Skin: 0=Smooth Skin COWS Score: 11 BHS Progress Note (SOAP) Subjective: PT REPORTS RELIEF WITH DETOX MEDS AND SLEPT BETTER LAST NIGHT. Objective: 04/04/18 12:21 Vital Signs 04/04/18 04/04/18 04/04/18 06:14 06:30 10:10 Temperature 97 F L 97.6 F Pulse Rate 58 L 70 Respiratory 18 18 18 Rate Blood Pressure 116/71 146/84 04/04/18 12:02 Temperature 97.6 F Pulse Rate 70 Respiratory 18 Rate Blood Pressure 146/84 Laboratory Tests 04/02/18 04/03/18 04/03/18 23:20 06:00 06:00 WBC 8.3 RBC 4.54 Hgb 13.4 Hct 40.0 MCV 88.2 MCH 29.5 MCHC 33.5 RDW 13.3 Plt Count 396 D MPV 9.0 Sodium 139 Potassium 4.7 D Chloride 104 Carbon Dioxide 27 Anion Gap 8 BUN 13 Creatinine 1.1 Creat Clearance w eGFR > 60 Random Glucose 76 Calcium 8.8 Total Bilirubin 0.4 AST 15 ALT 14 D Alkaline Phosphatase 82 Total Protein 7.4 Albumin 4.4 Urine Color Ltyellow Urine Appearance Clear Urine pH 5.0 Ur Specific [place] 1.010 Urine Protein Negative Urine Glucose (UA) Negative Urine Ketones Negative Urine Blood Negative Urine Nitrite Negative Urine Bilirubin Negative Urine Urobilinogen Negative Ur Leukocyte Esterase Negative RPR Titer 04/03/18 06:00 WBC RBC Hgb Hct MCV MCH MCHC RDW Plt Count MPV Sodium Potassium Chloride Carbon Dioxide Anion Gap BUN Creatinine Creat Clearance w eGFR Random Glucose Calcium Total Bilirubin AST ALT Alkaline Phosphatase Total Protein Albumin Urine Color Urine Appearance Urine pH Ur Specific [place] Urine Protein Urine Glucose (UA) Urine Ketones Urine Blood Urine Nitrite Urine Bilirubin Urine Urobilinogen Ur Leukocyte Esterase RPR Titer Nonreactive Assessment: 04/04/18 12:22 WITHDRAWAL SX Plan: CONTINUE DETOX
[2018-04-04] MEDS: THIAMINE HCL 100 MG TABLET (FP) PO SCH (22:07)
[2018-04-04] MEDS: ZOLPIDEM TARTRATE 10 MG TABLET (PARK CARE ONLY) PO PRN (22:08)
[2018-04-05] MEDS ORDERED: hydrOXYzine PAMOATE 50 MG CAPSULE (FP) PO PRN (08:53)
[2018-04-05] MEDS ORDERED: METHADONE HCL 5 MG TABLET (FOR DETOX USE ONLY) PO ONE (10:00)
[2018-04-05] MEDS: PRENATAL VITAMINS W/ FOLIC ACID TABLET (FP) PO SCH (10:15)
[2018-04-05] MEDS: diazePAM 5 MG TABLET PO PRN (10:16)
[2018-04-05] MEDS: NICOTINE 14 MG/24 HOURS TOPICAL PATCH TD SCH (10:17)
--- NOTE | 2018-04-05 13:08 | PN ---
BHS Progress Note (SOAP) Subjective: C/O ANXIETY,SWEATS. OOB, NAD. Objective: 04/05/18 13:07 Vital Signs 04/05/18 04/05/18 06:18 09:36 Temperature 97.1 F L 99.4 F Pulse Rate 59 L 66 Respiratory 18 18 Rate Blood Pressure 127/80 136/81 Laboratory Tests 04/02/18 04/03/18 04/03/18 23:20 06:00 06:00 WBC 8.3 RBC 4.54 Hgb 13.4 Hct 40.0 MCV 88.2 MCH 29.5 MCHC 33.5 RDW 13.3 Plt Count 396 D MPV 9.0 Sodium 139 Potassium 4.7 D Chloride 104 Carbon Dioxide 27 Anion Gap 8 BUN 13 Creatinine 1.1 Creat Clearance w eGFR > 60 Random Glucose 76 Calcium 8.8 Total Bilirubin 0.4 AST 15 ALT 14 D Alkaline Phosphatase 82 Total Protein 7.4 Albumin 4.4 Urine Color Ltyellow Urine Appearance Clear Urine pH 5.0 Ur Specific [place] 1.010 Urine Protein Negative Urine Glucose (UA) Negative Urine Ketones Negative Urine Blood Negative Urine Nitrite Negative Urine Bilirubin Negative Urine Urobilinogen Negative Ur Leukocyte Esterase Negative RPR Titer 04/03/18 06:00 WBC RBC Hgb Hct MCV MCH MCHC RDW Plt Count MPV Sodium Potassium Chloride Carbon Dioxide Anion Gap BUN Creatinine Creat Clearance w eGFR Random Glucose Calcium Total Bilirubin AST ALT Alkaline Phosphatase Total Protein Albumin Urine Color Urine Appearance Urine pH Ur Specific [place] Urine Protein Urine Glucose (UA) Urine Ketones Urine Blood Urine Nitrite Urine Bilirubin Urine Urobilinogen Ur Leukocyte Esterase RPR Titer Nonreactive Assessment: 04/05/18 13:08 WITHDRAWALS X Plan: CONTINUE DETOX [place] 50 MG PO Q4H PRN FOR ANXIETY
[2018-04-05] MEDS ORDERED: IBUPROFEN 600 MG TABLET (FP) PO PRN (13:31)
[2018-04-05] MEDS: ACETAMINOPHEN 325 MG TABLET (FP) PO PRN (13:32)
[2018-04-05] MEDS: CYCLOBENZAPRINE HCL 10 MG TABLET (FP) PO PRN ×2 (15:08→22:11)
[2018-04-05] MEDS: ZOLPIDEM TARTRATE 10 MG TABLET (PARK CARE ONLY) PO PRN (22:11)
[2018-04-05] MEDS: THIAMINE HCL 100 MG TABLET (FP) PO SCH (22:11)
[2018-04-05 22:40] VITALS: PULSE 67
[2018-04-06 06:48] VITALS: BP 128/82; TEMP 97.3
[2018-04-06] MEDS ORDERED: METHADONE HCL 5 MG TABLET (FOR DETOX USE ONLY) PO ONE (10:00)
[2018-04-06] MEDS ORDERED: METHADONE HCL 10 MG TABLET (FOR DETOX USE ONLY) PO ONE (10:00)
--- NOTE | 2018-04-06 13:18 | PN ---
BHS Progress Note (SOAP) Subjective: DETOX COMPLETED. ALERT O X 3. NAD. PT REPORTS HE HAS PMD FOR MEDICAL MANAGEMENT ON [place], [place]. Objective: 04/06/18 13:17 Vital Signs 04/06/18 04/06/18 06:30 06:47 Temperature 97.3 F L Pulse Rate 67 Respiratory 18 18 Rate Blood Pressure 128/82 Laboratory Tests 04/02/18 04/03/18 04/03/18 23:20 06:00 06:00 WBC 8.3 RBC 4.54 Hgb 13.4 Hct 40.0 MCV 88.2 MCH 29.5 MCHC 33.5 RDW 13.3 Plt Count 396 D MPV 9.0 Sodium 139 Potassium 4.7 D Chloride 104 Carbon Dioxide 27 Anion Gap 8 BUN 13 Creatinine 1.1 Creat Clearance w eGFR > 60 Random Glucose 76 Calcium 8.8 Total Bilirubin 0.4 AST 15 ALT 14 D Alkaline Phosphatase 82 Total Protein 7.4 Albumin 4.4 Urine Color Ltyellow Urine Appearance Clear Urine pH 5.0 Ur Specific [place] 1.010 Urine Protein Negative Urine Glucose (UA) Negative Urine Ketones Negative Urine Blood Negative Urine Nitrite Negative Urine Bilirubin Negative Urine Urobilinogen Negative Ur Leukocyte Esterase Negative RPR Titer 04/03/18 06:00 WBC RBC Hgb Hct MCV MCH MCHC RDW Plt Count MPV Sodium Potassium Chloride Carbon Dioxide Anion Gap BUN Creatinine Creat Clearance w eGFR Random Glucose Calcium Total Bilirubin AST ALT Alkaline Phosphatase Total Protein Albumin Urine Color Urine Appearance Urine pH Ur Specific [place] Urine Protein Urine Glucose (UA) Urine Ketones Urine Blood Urine Nitrite Urine Bilirubin Urine Urobilinogen Ur Leukocyte Esterase RPR Titer Nonreactive Assessment: 04/06/18 13:17 MEDICALLY STABLE Plan: D/C PT TODAY
--- NOTE | 2018-04-06 13:23 | DS ---
[facility] Detox Discharge Summary Admission Date: 04/02/18 Discharge Date: 04/06/18 - History Present History: Opioid Dependence Additional Comments: DETOX COMPLETED. Pertinent Past History: SEE DX BELOW - Physical Exam Results Vital Signs: Vital Signs Temperature 97.3 F L 04/06/18 06:47 Pulse Rate 67 04/06/18 06:47 Respiratory Rate 18 04/06/18 06:47 Blood Pressure 128/82 04/06/18 06:47 O2 Sat by Pulse Oximetry (%) Pertinent Admission Physical Exam Findings: WITHDRAWAL SX - Treatment Hospital Course: Detox Protocol Followed, Detoxed Safely, Responded well, Discharged Condition Good - Medication Discharge Medications: Ambulatory Orders NK [No Known Home Medication] 12/25/17 - Diagnosis (1) Opioid dependence with withdrawal Status: Acute (2) Sleeping difficulty Status: Chronic (3) Nicotine dependence Status: Acute Qualifiers: Nicotine product type: cigarettes Substance use status: in withdrawal Qualified Code(s): F17.213 - Nicotine dependence, cigarettes, with withdrawal - AMA Did Patient Leave Against Medical Advice: No
[2018-04-07] MEDS ORDERED: METHADONE HCL 5 MG TABLET (FOR DETOX USE ONLY) PO ONE (06:00)
== END 2018-04-06 09:20 | disposition home or self-care (01) | DRG 773 ==
LOC: YASAS 11:47 → Y3N 16:58
PROC: HZ2ZZZZ Detoxification Services for Substance Abuse Treatment (ICD-10-PCS; principal; 2018-04-02)
DX: F11.23 Opioid dependence with withdrawal (principal); F14.20 Cocaine dependence, uncomplicated; F17.213 Nicotine dependence, cigarettes, with withdrawal; F41.8 Other specified anxiety disorders; G47.00 Insomnia, unspecified
CPT/HCPCS: 36415; 80053; 81003; 85027; 86593; 93005; 93010

== ENCOUNTER 2019-02-26 09:01 | Inpatient (IN) | payer OTHER | END 2019-03-03 11:31 | disposition other institution (70) | LOC: YASAS 09:01 → Y6N 12:19 ==

== ENCOUNTER 2019-07-29 10:37 | Inpatient (IN) | payer OTHER ==
[2019-07-29 11:01] VITALS: BMI 23.8
--- NOTE | 2019-07-29 11:34 | HP ---
COWS - Scale Resting Pulse: 0= [place] 80 or Below Sweatin= Chills/Flushing Restless Observation: 1= Difficult to Sit Still Pupil Size: 1= Pupils >than Normal Bone or Joint Aches: 1= Mild Discomfort Runny Nose/ Eye Tearin= Runny Nose/Eyes GI Upset > 30mins: 2= Nausea/Diarrhea Tremor Observation: 1= Tremor [place], Not Seen Yawning Observation: 1= 1-2x During Session Anxiety or Irritability: 1=Feels Anxious/Irritable Goose Flesh Skin: 3=Piloerection COWS Score: 14 CIWA Score - Admission Criteria OASAS Guidelines: Admission for Medically Managed Detox: Requires at least one of the followin. CIWA greater than 12 2. Seizures within the past 24 hours 3. Delirium tremens within the past 24 hours 4. Hallucinations within the past 24 hours 5. Acute intervention needed for co occurring medical disorder 6. Acute intervention needed for co occurring psychiatric disorder 7. Severe withdrawal that cannot be handled at a lower level of care (continued vomiting, continued diarrhea, abnormal vital signs) requiring intravenous medication and/or fluids 8. Admitting History and Physical - Admission Chief Complaint: " I want to get better and leave the drugs alone." History of Present Illness: 48 year old male with history of cocaine, alcohol, heroin, and nicotine dependence is here for detox from heroin. Last detox was in 01/2019 which he completed and was abstinent for a few months but then was triggered when he was caught smoking in a program and he relapsed 3 months ago. He was able to remain abstinent from last detox when he was at [facility]. He wants to attempt detox once again. He smokes 1/2 ppd and since 27 years old. PMHx: Inguinal hernia, insomnia, and bipolar disorder. Denies suicidal or homicidal ideation. Longest period of sobriety is 10 years. He relapsed 3 months ago. Denies blackout or seizures. Psurg: None Patient denies any legal issues pending. Psych: None He is homeless because he does not wish to return to his mother's house. He has no support systems outside of his mother. 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 Loss EENT: reports: No Symptoms Reported Respiratory: reports: No Symptoms reported Cardiac: reports: No Symptoms Reported GI: reports: Nausea, Abdominal cramping : reports: No Symptoms Reported Musculoskeletal: reports: No Symptoms Reported Integumentary: reports: No Symptoms Reported Neuro: reports: No Symptoms reported Endocrine: reports: No Symptoms Reported Hematology: reports: No Symptoms Reported Psychiatric: reports: Judgement Intact, Orientated x3, Agitated, Anxious Other Systems: Reviewed and Negative Patient History - Patient Medical History Hx Anemia: No Hx Asthma: No Hx Chronic Obstructive Pulmonary Disease (COPD): No Hx Cancer: No Hx Cardiac Disorders: No Hx Congestive Heart Failure: No Hx Hypertension: No Hx Hypercholesterolemia: No Hx Pacemaker: No HX Cerebrovascular Accident: No Hx Seizures: No Hx Dementia: No Hx Diabetes: No Hx Gastrointestinal Disorders: No Hx Liver Disease: No Hx Genitourinary Disorders: No Hx Sexually Transmitted Disorders: No Hx Renal Disease (ESRD): No Hx Thyroid Disease: No Hx Human Immunodeficiency Virus (HIV): No (last 07/15 negative, declines testing at this time ) Hx Hepatitis C: No Hx Depression: No Hx Suicide Attempt: No Hx Bipolar Disorder: No Hx Schizophrenia: No - Patient Surgical History Past Surgical History: No Hx Neurologic Surgery: No Hx Cataract Extraction: No Hx Cardiac Surgery: No Hx Lung Surgery: No Hx Breast Surgery: No Hx Breast Biopsy: No Hx Abdominal Surgery: No Hx Appendectomy: No Hx Cholecystectomy: No Hx Genitourinary Surgery: No Hx Section: No Hx Orthopedic Surgery: No Anesthesia Reaction: No - PPD History Previous Implant?: Yes Documented Results: Negative w/proof Implanted On Prior [facility] Admission?: Yes Date: 02/26/18 Results: negative PPD to be Administered?: No - Smoking Cessation Smoking history: Current every day smoker Have you smoked in the past 12 months: Yes Aproximately how many cigarettes per day: 10 Cigars Per Day: 0 Hx Chewing Tobacco Use: No Initiated information on smoking cessation: Yes 'Breaking Loose' booklet given: 07/29/19 - Substances abused Heroin Substance route: Inhalation Frequency: Daily Amount used: 6-10 bags Age of first use: 20 Date of last use: 07/29/19 Cocaine Substance route: Smoking Frequency: 1-3 times last 30 days Amount used: 5 dime bags Age of first use: 16 Date of last use: 07/22/19 Alcohol Substance route: Oral Frequency: Daily Amount used: 1 pint of vodka Age of first use: 25 Date of last use: 07/27/19 Admission Physical Exam S - Vital Signs Vital Signs: Vital Signs - 24 hr 07/29/19 10:55 Temperature 97.3 F L Pulse Rate 63 Respiratory 18 Rate Blood Pressure 139/80 - Physical General Appearance: Yes: Moderate Distress, Tremorous, Irritable, Sweating HEENTM: Yes: EOMI, Hearing grossly Normal, Normal ENT Inspection, Normocephalic , Normal Voice, SUNG, Pharynx Normal, Tm's normal Respiratory: Yes: Chest Non-Tender, Lungs Clear, Normal Breath Sounds, No Respiratory Distress, No Accessory Muscle Use Neck: Yes: No masses,lesions,Nodules, Supple, Trachea in good position Breast: Yes: Within Normal Limits Cardiology: Yes: Regular Rhythm, Regular Rate, S1, S2 Abdominal: Yes: Normal Bowel Sounds, Non Tender, Flat, Soft Genitourinary: Yes: Within Normal Limits Back: Yes: Normal Inspection Musculoskeletal: Yes: full range of Motion, Gait Steady, Pelvis Stable Extremities: Yes: Normal Capillary Refill, Normal Inspection, Normal Range of Motion, Non-Tender Neurological: Yes: 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 NML intact, Fully Oriented, Alert, Motor Strength 5/5, Normal Mood/Affect, Normal Response Integumentary: Yes: Normal Color, Warm Lymphatic: Yes: Within Normal Limits - Diagnostic (1) Alcohol dependence with uncomplicated withdrawal Current Visit: Yes Status: Chronic (2) Bipolar 1 disorder Current Visit: Yes Status: Chronic (3) Cocaine dependence Current Visit: Yes Status: Chronic Qualifiers: Substance use status: uncomplicated Qualified Code(s): F14.20 - Cocaine dependence, uncomplicated (4) Inguinal hernia Current Visit: Yes Status: Chronic Qualifiers: Obstruction and gangrene presence: without obstruction or gangrene Laterality: unilateral Recurrence: recurrent Qualified Code(s): K40.91 - Unilateral inguinal hernia, without obstruction or gangrene, recurrent (5) Insomnia Current Visit: Yes Status: Chronic Qualifiers: Insomnia type: unspecified Qualified Code(s): G47.00 - Insomnia, unspecified (6) Nicotine dependence Current Visit: Yes Status: Chronic Qualifiers: Nicotine product type: cigarettes Substance use status: uncomplicated Qualified Code(s): F17.210 - Nicotine dependence, cigarettes, uncomplicated Cleared for Admission [facility] - Detox or Rehab [facility] Level of Care: Medically Managed Detox Regimen/Protocol: Methadone/Librium Claeared for Rehab Admission: No Screened but not Admitted - Documentation of Visit Screened but not Admitted: No Breathalyzer - Breathalyzer Breathalyzer: 0 POC Urine test - Test device test lot number: not applicable Urine Drug Screen - Test Device Lot number: [id number] Expiration date: 02/26/21 - Control Is test valid?: Yes - Results Drug screen NEGATIVE: No Urine drug screen results: MAGDY-Cocaine, MET-Methamphetamine, MOP-Opiates Inpatient Rehab Admission - Rehab Decision to Admit Inpatient rehab admission?: No
[2019-07-29] MEDS ORDERED: MAGNESIUM HYDROX 2400MG/30ML ORAL SUSPENSION 30 ML CUP PO PRN (11:41)
[2019-07-29] MEDS ORDERED: MENTHOL/PHENOL 1 EACH UD MM PRN (11:41)
[2019-07-29] MEDS ORDERED: chlordiazePOXIDE HCL 10 MG CAPSULE PO PRN (11:41)
[2019-07-29] MEDS ORDERED: IBUPROFEN 400 MG TABLET (FP) PO PRN (11:41)
[2019-07-29] MEDS ORDERED: BISMUTH SUBSALICYLATE 262 MG/15 ML BTL PO PRN (11:41)
[2019-07-29] MEDS ORDERED: ACETAMINOPHEN 325 MG TABLET (FP) PO PRN ×2 (11:41)
[2019-07-29] MEDS ORDERED: MAGNESIUM CITRATE 300 ML BOTTLE PO PRN (11:41)
[2019-07-29] MEDS ORDERED: cloNIDine HCL 0.1 MG TABLET PO PRN (11:41)
[2019-07-29] MEDS ORDERED: MELATONIN 5 MG TABLETS PO PRN (11:41)
[2019-07-29] MEDS ORDERED: hydrOXYzine PAMOATE 25 MG CAPSULE (FP) PO PRN (11:41)
[2019-07-29] MEDS ORDERED: METHOCARBAMOL 500 MG TABLET PO PRN (11:41)
[2019-07-29] MEDS ORDERED: MAG HYDROX/AL HYDROX/SIMETH 30 ML UNIT-DOSE CUP PO PRN (11:41)
[2019-07-29] MEDS ORDERED: METHADONE HCL 10 MG TABLET (FOR DETOX USE ONLY) PO ONE (12:55)
[2019-07-29] MEDS: chlordiazePOXIDE HCL 25 MG CAPSULE PO SCH ×2 (13:15→21:27)
[2019-07-29 14:42] LABS: HEMATOCRIT 37.3 % (35.4-49); HEMOGLOBIN 12.4 GM/dL (11.7-16.9); MCH 29.1 pg (25.7-33.7); MCHC 33.3 g/dl (32.0-35.9); MEAN CELL VOLUME 87.5 fl (80-96); MEAN PLT VOLUME 8.3 fl (7.5-11.1); PLATELET COUNT 370 K/MM3 (134-434); RBC 4.27 M/mm3 (4.00-5.60); RDW 13.3 % (11.9-15.9); WHITE BLOOD COUNT 8.3 K/mm3 (4.0-10.0)
[2019-07-29 14:48] LABS: ALBUMIN 3.6 g/dl (3.4-5.0); BILIRUBIN,TOTAL 0.2 mg/dL (0.2-1); BLOOD UREA NITROGEN 11.4 mg/dL (7-18); CREATININE 0.8 mg/dL (0.55-1.3); POTASSIUM 4.3 mmol/L (3.5-5.1); TOT PROT 7.4 g/dl (6.4-8.2)
[2019-07-29] MEDS ORDERED: THIAMINE HCL 100 MG TABLET (FP) PO SCH (22:00)
[2019-07-30] MEDS: chlordiazePOXIDE HCL 25 MG CAPSULE PO SCH (05:41)
[2019-07-30 09:59] VITALS: TEMP 98.2
[2019-07-30] MEDS ORDERED: METHADONE HCL 5 MG TABLET (FOR DETOX USE ONLY) ONE (09:59)
[2019-07-30] MEDS ORDERED: METHADONE HCL 10 MG TABLET (FOR DETOX USE ONLY) ONE (09:59)
[2019-07-30] MEDS ORDERED: PRENATAL VITAMINS W/ FOLIC ACID TABLET (FP) PO SCH (10:00)
[2019-07-30] MEDS ORDERED: METHADONE (DETOX) 20 MG, METHADONE (DETOX) 5 MG PO ONE (10:00)
[2019-07-30] MEDS ORDERED: NICOTINE 14 MG/24 HOURS TOPICAL PATCH TD SCH (10:00)
--- NOTE | 2019-07-30 10:08 | PN ---
S CIWA - CIWA Score Nausea/Vomitin-Mild Nausea/No Vomiting Muscle Tremors: 2 Anxiety: 2 Agitation: 2 Paroxysmal Sweats: No Perspiration Orientation: 0-Oriented Tacttile Disturbances: 1-Very Mild Itch/Numbness Auditory Disturbances: 0-None Visual Disturbances: 0-None Headache: 1-Very Mild CIWA-Ar Total Score: 9 S Progress Note (SOAP) Subjective: alert,irritable,anxious,interrupted sleep,tremor Objective: 07/30/19 10:07 Vital Signs Temperature 98.2 F 07/30/19 09:58 Pulse Rate 71 07/30/19 09:58 Respiratory Rate 18 07/30/19 09:58 Blood Pressure 134/91 07/30/19 09:58 O2 Sat by Pulse Oximetry (%) 07/30/19 10:07 Laboratory Last Values WBC 8.3 K/mm3 (4.0-10.0) 07/29/19 11:50 RBC 4.27 M/mm3 (4.00-5.60) 07/29/19 11:50 Hgb 12.4 GM/dL (11.7-16.9) 07/29/19 11:50 Hct 37.3 % (35.4-49) 07/29/19 11:50 MCV 87.5 fl (80-96) 07/29/19 11:50 MCH 29.1 pg (25.7-33.7) 07/29/19 11:50 MCHC 33.3 g/dl (32.0-35.9) 07/29/19 11:50 RDW 13.3 % (11.9-15.9) 07/29/19 11:50 Plt Count 370 K/MM3 (134-434) 07/29/19 11:50 MPV 8.3 fl (7.5-11.1) 07/29/19 11:50 Sodium 137 mmol/L (136-145) 07/29/19 11:50 Potassium 4.3 mmol/L (3.5-5.1) 07/29/19 11:50 Chloride 103 mmol/L (98-107) 07/29/19 11:50 Carbon Dioxide 30 mmol/L (21-32) 07/29/19 11:50 Anion Gap 5 MMOL/L (8-16) L 07/29/19 11:50 BUN 11.4 mg/dL (7-18) 07/29/19 11:50 Creatinine 0.8 mg/dL (0.55-1.3) 07/29/19 11:50 Est GFR (CKD-EPI)AfAm 122.43 07/29/19 11:50 Est GFR (CKD-EPI)NonAf 105.63 07/29/19 11:50 Random Glucose 87 mg/dL (74-106) 07/29/19 11:50 Calcium 9.0 mg/dL (8.5-10.1) 07/29/19 11:50 Total Bilirubin 0.2 mg/dL (0.2-1) 07/29/19 11:50 AST 13 U/L (15-37) L 07/29/19 11:50 ALT 20 U/L (13-61) 07/29/19 11:50 Alkaline Phosphatase 78 U/L (45-117) 07/29/19 11:50 Total Protein 7.4 g/dl (6.4-8.2) 07/29/19 11:50 Albumin 3.6 g/dl (3.4-5.0) 07/29/19 11:50 RPR Titer Nonreactive (NONREACTIVE) 07/29/19 11:50 Assessment: 07/30/19 10:08 withdrawal symptom Plan: continue detox librium regimen
--- NOTE | 2019-07-30 13:31 | PN ---
S CIWA - CIWA Score Nausea/Vomitin-Mild Nausea/No Vomiting Muscle Tremors: 2 Anxiety: 2 Agitation: 2 Paroxysmal Sweats: No Perspiration Orientation: 0-Oriented Tacttile Disturbances: 1-Very Mild Itch/Numbness Auditory Disturbances: 0-None Visual Disturbances: 0-None Headache: 1-Very Mild CIWA-Ar Total Score: 9 [facility] COWS - Scale Resting Pulse: 0= [place] 80 or Below Sweatin= No chills or Flushing Restless Observation: 1= Difficult to Sit Still Pupil Size: 0= Normal to Room Light Bone or Joint Aches: 1= Mild Discomfort Runny Nose/ Eye Tearin= Nasal Congestion GI Upset > 30mins: 2= Nausea/Diarrhea Tremor Observation of Outstretched Hands: 2= Slight Tremor Visible Yawning Observation: 1= 1-2x During Session Anxiety or Irritability: 2=Irritable/Anxious Goose Flesh Skin: 0=Smooth Skin COWS Score: 10 S Progress Note (SOAP) Subjective: alert,irritable,anxious,interrupted sleep,pain in the body and back Objective: 07/30/19 13:29 Vital Signs Temperature 98.2 F 07/30/19 09:58 Pulse Rate 71 07/30/19 09:58 Respiratory Rate 18 07/30/19 09:58 Blood Pressure 134/91 07/30/19 09:58 O2 Sat by Pulse Oximetry (%) Laboratory Last Values WBC 8.3 K/mm3 (4.0-10.0) 07/29/19 11:50 RBC 4.27 M/mm3 (4.00-5.60) 07/29/19 11:50 Hgb 12.4 GM/dL (11.7-16.9) 07/29/19 11:50 Hct 37.3 % (35.4-49) 07/29/19 11:50 MCV 87.5 fl (80-96) 07/29/19 11:50 MCH 29.1 pg (25.7-33.7) 07/29/19 11:50 MCHC 33.3 g/dl (32.0-35.9) 07/29/19 11:50 RDW 13.3 % (11.9-15.9) 07/29/19 11:50 Plt Count 370 K/MM3 (134-434) 07/29/19 11:50 MPV 8.3 fl (7.5-11.1) 07/29/19 11:50 Sodium 137 mmol/L (136-145) 07/29/19 11:50 Potassium 4.3 mmol/L (3.5-5.1) 07/29/19 11:50 Chloride 103 mmol/L (98-107) 07/29/19 11:50 Carbon Dioxide 30 mmol/L (21-32) 07/29/19 11:50 Anion Gap 5 MMOL/L (8-16) L 07/29/19 11:50 BUN 11.4 mg/dL (7-18) 07/29/19 11:50 Creatinine 0.8 mg/dL (0.55-1.3) 07/29/19 11:50 Est GFR (CKD-EPI)AfAm 122.43 07/29/19 11:50 Est GFR (CKD-EPI)NonAf 105.63 07/29/19 11:50 Random Glucose 87 mg/dL (74-106) 07/29/19 11:50 Calcium 9.0 mg/dL (8.5-10.1) 07/29/19 11:50 Total Bilirubin 0.2 mg/dL (0.2-1) 07/29/19 11:50 AST 13 U/L (15-37) L 07/29/19 11:50 ALT 20 U/L (13-61) 07/29/19 11:50 Alkaline Phosphatase 78 U/L (45-117) 07/29/19 11:50 Total Protein 7.4 g/dl (6.4-8.2) 07/29/19 11:50 Albumin 3.6 g/dl (3.4-5.0) 07/29/19 11:50 RPR Titer Nonreactive (NONREACTIVE) 07/29/19 11:50 Assessment: 07/30/19 13:30 withdrawal symptom Plan: continue detox methadone and librium regimen
--- NOTE | 2019-07-30 13:32 | PN ---
[facility] Progress Note Note: please disregard note on this patient 10.06 am
--- NOTE | 2019-07-30 13:38 | PN ---
[facility] Progress Note Note: patient did not want to complete treatment,all attempts to convince patient to stay with no avail,high risk of relapsing explained,patient understood,signed release ama, advise to call 911 if not feeling well
--- NOTE | 2019-07-30 13:41 | DS ---
[facility] Detox Discharge Summary Admission Date: 07/29/19 Discharge Date: 07/30/19 - History Present History: Alcohol Dependence, Opioid Dependence Additional Comments: patient signed release ama Pertinent Past History: nicotine dependence - Physical Exam Results Vital Signs: Vital Signs Temperature 98.2 F 07/30/19 09:58 Pulse Rate 71 07/30/19 09:58 Respiratory Rate 18 07/30/19 09:58 Blood Pressure 134/91 07/30/19 09:58 O2 Sat by Pulse Oximetry (%) Pertinent Admission Physical Exam Findings: withdrawal signs and symptom Vital Signs Temperature 98.2 F 07/30/19 09:58 Pulse Rate 71 07/30/19 09:58 Respiratory Rate 18 07/30/19 09:58 Blood Pressure 134/91 07/30/19 09:58 O2 Sat by Pulse Oximetry (%) Laboratory Last Values WBC 8.3 K/mm3 (4.0-10.0) 07/29/19 11:50 RBC 4.27 M/mm3 (4.00-5.60) 07/29/19 11:50 Hgb 12.4 GM/dL (11.7-16.9) 07/29/19 11:50 Hct 37.3 % (35.4-49) 07/29/19 11:50 MCV 87.5 fl (80-96) 07/29/19 11:50 MCH 29.1 pg (25.7-33.7) 07/29/19 11:50 MCHC 33.3 g/dl (32.0-35.9) 07/29/19 11:50 RDW 13.3 % (11.9-15.9) 07/29/19 11:50 Plt Count 370 K/MM3 (134-434) 07/29/19 11:50 MPV 8.3 fl (7.5-11.1) 07/29/19 11:50 Sodium 137 mmol/L (136-145) 07/29/19 11:50 Potassium 4.3 mmol/L (3.5-5.1) 07/29/19 11:50 Chloride 103 mmol/L (98-107) 07/29/19 11:50 Carbon Dioxide 30 mmol/L (21-32) 07/29/19 11:50 Anion Gap 5 MMOL/L (8-16) L 07/29/19 11:50 BUN 11.4 mg/dL (7-18) 07/29/19 11:50 Creatinine 0.8 mg/dL (0.55-1.3) 07/29/19 11:50 Est GFR (CKD-EPI)AfAm 122.43 07/29/19 11:50 Est GFR (CKD-EPI)NonAf 105.63 07/29/19 11:50 Random Glucose 87 mg/dL (74-106) 07/29/19 11:50 Calcium 9.0 mg/dL (8.5-10.1) 07/29/19 11:50 Total Bilirubin 0.2 mg/dL (0.2-1) 07/29/19 11:50 AST 13 U/L (15-37) L 07/29/19 11:50 ALT 20 U/L (13-61) 07/29/19 11:50 Alkaline Phosphatase 78 U/L (45-117) 07/29/19 11:50 Total Protein 7.4 g/dl (6.4-8.2) 07/29/19 11:50 Albumin 3.6 g/dl (3.4-5.0) 07/29/19 11:50 RPR Titer Nonreactive (NONREACTIVE) 07/29/19 11:50 - Medication Discharge Medications: Ambulatory Orders NK [No Known Home Medication] 12/25/17 - Diagnosis (1) Opioid dependence with withdrawal Current Visit: No Status: Chronic (2) Alcohol dependence with uncomplicated withdrawal Current Visit: Yes Status: Chronic (3) Nicotine dependence Current Visit: Yes Status: Chronic Qualifiers: Nicotine product type: cigarettes Substance use status: uncomplicated Qualified Code(s): F17.210 - Nicotine dependence, cigarettes, uncomplicated - AMA Did Patient Leave Against Medical Advice: Yes
[2019-07-30 14:10] VITALS: BP 124/89; PULSE 75
[2019-07-31] MEDS ORDERED: chlordiazePOXIDE 5 MG CAPSULE PO SCH (05:00)
[2019-07-31] MEDS ORDERED: METHADONE HCL 10 MG TABLET (FOR DETOX USE ONLY) PO ONE (10:00)
[2019-08-01] MEDS ORDERED: chlordiazePOXIDE HCL 10 MG CAPSULE PO PRN
[2019-08-01] MEDS ORDERED: chlordiazePOXIDE HCL 10 MG CAPSULE PO SCH (05:00)
[2019-08-01] MEDS ORDERED: METHADONE (DETOX) 10 MG, METHADONE (DETOX) 5 MG PO ONE (10:00)
[2019-08-02] MEDS ORDERED: chlordiazePOXIDE HCL 10 MG CAPSULE PO ONE (05:00)
[2019-08-02] MEDS ORDERED: METHADONE HCL 10 MG TABLET (FOR DETOX USE ONLY) PO ONE (10:00)
[2019-08-03] MEDS ORDERED: METHADONE HCL 5 MG TABLET (FOR DETOX USE ONLY) PO ONE (06:00)
== END 2019-07-30 13:30 | disposition left against medical advice (07) | DRG 770 ==
LOC: YASAS 10:37 → Y6N 12:29
PROVIDERS: ADMIT Allergy & Immunology; ATTEND Allergy & Immunology
PROC: HZ2ZZZZ Detoxification Services for Substance Abuse Treatment (ICD-10-PCS; principal; 2019-07-29)
DX: F11.23 Opioid dependence with withdrawal (principal); F10.230 Alcohol dependence with withdrawal, uncomplicated; F17.210 Nicotine dependence, cigarettes, uncomplicated; F31.89 Other bipolar disorder; K40.91 Unilateral inguinal hernia, without obstruction or gangrene, recurrent; G47.00 Insomnia, unspecified; Z59.0 Homelessness
CPT/HCPCS: 36415; 80053; 85027; 86593

== ENCOUNTER 2019-09-15 10:59 | Inpatient (IN) | payer OTHER ==
--- NOTE | 2019-09-15 11:37 | BHS.RME ---
Substance Use & Tx History - Substance Use History Alcohol Substance amount: 2 pints vodka Frequency of use: Daily Substance route: Oral Date of Last Use: 09/14/19 Opiates (Heroin) Substance amount: 1- 1.5 bundles Frequency of use: Daily Substance route: Inhalation (ex: sniffing or snorting) Date of Last Use: 09/15/19 Cocaine (Crack) Substance amount: 1-2 gm Frequency of use: Daily Substance route: Smoking Date of Last Use: 09/14/19 Physical/Psych/Mental Status - Behavior General Behavior: Increased activity (restlessness, agitation) Eye Contact: Normal - Cooperativeness Cooperativeness: Cooperative - Thinking Thought Processes: Tight, Logical, Goal Directed Thought content: Future oriented - Physical Health Problems Is patient presently having any pain?: No Does patient presently have any injuries (include location): No Does patient currently have a fever: No Is patient : No COWS - Scale Resting Pulse: 0= [place] 80 or Below Sweatin= Beads of Sweat on Face Restless Observation: 3= Extraneous Movement Pupil Size: 1= Pupils >than Normal Bone or Joint Aches: 4=Acute Joint/Muscle Pain Runny Nose/ Eye Tearin= Runny Nose/Eyes GI Upset > 30mins: 1= Stomach Cramp Tremor Observation: 2= Slight Tremor Visible Yawning Observation: 1= 1-2x During Session Anxiety or Irritability: 1=Feels Anxious/Irritable Goose Flesh Skin: 0=Smooth Skin COWS Score: 18 CIWA Nausea/Vomitin Muscle Tremors: 2 Anxiety: 2 Agitation: 3 Paroxysmal Sweats: 4-Forehead w/Sweat Beads Orientation: 0-Oriented Tacttile Disturbances: 0-None Auditory Disturbances: 0-None Visual Disturbances: 0-None Headache: 2-Mild CIWA-Ar Total Score: 15
--- NOTE | 2019-09-15 11:56 | HP ---
COWS - Scale Resting Pulse: 0= [place] 80 or Below Sweatin= Beads of Sweat on Face Restless Observation: 3= Extraneous Movement Pupil Size: 1= Pupils >than Normal Bone or Joint Aches: 4=Acute Joint/Muscle Pain Runny Nose/ Eye Tearin= Runny Nose/Eyes GI Upset > 30mins: 1= Stomach Cramp Tremor Observation: 2= Slight Tremor Visible Yawning Observation: 1= 1-2x During Session Anxiety or Irritability: 1=Feels Anxious/Irritable Goose Flesh Skin: 0=Smooth Skin COWS Score: 18 CIWA Score Nausea/Vomitin Muscle Tremors: 2 Anxiety: 2 Agitation: 3 Paroxysmal Sweats: 4-Forehead w/Sweat Beads Orientation: 0-Oriented Tacttile Disturbances: 0-None Auditory Disturbances: 0-None Visual Disturbances: 0-None Headache: 2-Mild CIWA-Ar Total Score: 15 - Admission Criteria OASAS Guidelines: Admission for Medically Managed Detox: Requires at least one of the followin. CIWA greater than 12 2. Seizures within the past 24 hours 3. Delirium tremens within the past 24 hours 4. Hallucinations within the past 24 hours 5. Acute intervention needed for co occurring medical disorder 6. Acute intervention needed for co occurring psychiatric disorder 7. Severe withdrawal that cannot be handled at a lower level of care (continued vomiting, continued diarrhea, abnormal vital signs) requiring intravenous medication and/or fluids 8. Admitting History and Physical - Admission Chief Complaint: Mr. Foster presents to [facility] requesting admission to detox for heroin and alcohol use disorder. History of Present Illness: Mr. Foster presents to [facility] requesting admission to detox for heroin and alcohol use disorder. He is a 48 yo gentleman with a PMH: inguinal hernia, insomnia, back pain PSH: none Psych: Bipolar, saw physician years ago Substance use history Heroin: first use at the age of 42 y, last use 6 am today, 1-1.5 bundles dialy, sniff, no hx of OD. Has Narcan at home. Never on methadone outpt Alcohol: first use at the age of 23 y, last use yesterday, 2 pints Vdka, 8 beers x 24 ounce each. Black out x 2 age 25 and 26. No withdrawal seizures. 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 History of Recent Travel: No Admission ROS [facility] - [facility] Allergies/Adverse Reactions: Allergies Allergy/AdvReac Type Severity Reaction Status Date / Time No Known Allergies Allergy Verified 07/29/19 10:55 Exam Limitations: No Limitations - Ebola screening Have you traveled outside of the country in the last 21 days: No Have you had contact with anyone from an Ebola affected area: No Have you been sick,other than usual withdrawal symptoms: No Do you have a fever: No - Review of Systems Constitutional: No Symptoms Reported, Unexplained wgt Loss (lost about 17 lbs in 4 mos) EENT: reports: No Symptoms Reported, Blurred Vision (has glasses) Respiratory: reports: No Symptoms reported Cardiac: reports: No Symptoms Reported GI: reports: Other (cramps) : reports: No Symptoms Reported Musculoskeletal: reports: Back Pain, Joint Pain Integumentary: reports: No Symptoms Reported Neuro: reports: No Symptoms reported Endocrine: reports: No Symptoms Reported Hematology: reports: No Symptoms Reported Psychiatric: reports: Anxious Patient History - Patient Medical History Hx Anemia: No Hx Asthma: No Hx Chronic Obstructive Pulmonary Disease (COPD): No Hx Cancer: No Hx Cardiac Disorders: No Hx Congestive Heart Failure: No Hx Hypertension: No Hx Hypercholesterolemia: No Hx Pacemaker: No HX Cerebrovascular Accident: No Hx Seizures: No Hx Dementia: No Hx Diabetes: No Hx Gastrointestinal Disorders: No Hx Liver Disease: No Hx Genitourinary Disorders: No Hx Sexually Transmitted Disorders: No Hx Renal Disease (ESRD): No Hx Thyroid Disease: No Hx Human Immunodeficiency Virus (HIV): No (last 07/15 negative, declines testing at this time ) Hx Hepatitis C: No Hx Depression: Yes Hx Suicide Attempt: No Hx Bipolar Disorder: No Hx Schizophrenia: No - Patient Surgical History Past Surgical History: No Hx Neurologic Surgery: No Hx Cataract Extraction: No Hx Cardiac Surgery: No Hx Lung Surgery: No Hx Breast Surgery: No Hx Breast Biopsy: No Hx Abdominal Surgery: No Hx Appendectomy: No Hx Cholecystectomy: No Hx Genitourinary Surgery: No Hx Section: No Hx Orthopedic Surgery: No Anesthesia Reaction: No - PPD History Date: 02/26/18 Results: negative - Smoking Cessation Smoking history: Current every day smoker Have you smoked in the past 12 months: Yes Aproximately how many cigarettes per day: 10 Cigars Per Day: 0 Hx Chewing Tobacco Use: No Initiated information on smoking cessation: Yes 'Breaking Loose' booklet given: 09/15/19 - Substances abused Heroin Substance route: Inhalation Amount used: 1-1.5 bundles per day Age of first use: 42 Date of last use: 09/15/19 Alcohol Frequency: Daily Amount used: 2 pints Vodka, 8 Beers 24 oz Age of first use: 23 Date of last use: 09/14/19 Cocaine Substance route: Inhalation Amount used: $20. Age of first use: 18 Date of last use: 09/14/19 Admission Physical Exam BHS - Physical General Appearance: Yes: Within Normal Limits HEENTM: Yes: Hearing grossly Normal, Normal Voice Respiratory: Yes: Lungs Clear, Normal Breath Sounds Neck: Yes: Within Normal Limits Breast: Yes: Breast Exam Deferred Cardiology: Yes: Regular Rate, S1, S2 Abdominal: Yes: Normal Bowel Sounds, Non Tender, Flat, Soft Genitourinary: Yes: Other (deferred) Back: Yes: Normal Inspection Musculoskeletal: Yes: Within Normal Limits Extremities: Yes: Tremors - Diagnostic (1) Alcohol dependence with uncomplicated withdrawal Current Visit: Yes Status: Acute (2) Bipolar 1 disorder Current Visit: No Status: Chronic (3) Cocaine dependence Current Visit: Yes Status: Chronic Qualifiers: Substance use status: uncomplicated Qualified Code(s): F14.20 - Cocaine dependence, uncomplicated (4) Inguinal hernia Current Visit: No Status: Chronic Qualifiers: Obstruction and gangrene presence: without obstruction or gangrene Laterality: unilateral Recurrence: recurrent Qualified Code(s): K40.91 - Unilateral inguinal hernia, without obstruction or gangrene, recurrent (5) Insomnia Current Visit: No Status: Chronic Qualifiers: Insomnia type: unspecified Qualified Code(s): G47.00 - Insomnia, unspecified (6) Nicotine dependence Current Visit: No Status: Chronic Qualifiers: Nicotine product type: cigarettes Substance use status: uncomplicated Qualified Code(s): F17.210 - Nicotine dependence, cigarettes, uncomplicated (7) Opioid dependence with withdrawal Current Visit: No Status: Chronic Cleared for Admission S - Detox or Rehab [facility] Level of Care: Medically Managed Breathalyzer - Breathalyzer Breathalyzer: 0 POC Urine test - Test device test lot number: not applicable Urine Drug Screen - Test Device Lot number: [id number] Expiration date: 02/26/21 - Control Is test valid?: Yes - Results Drug screen NEGATIVE: No Urine drug screen results: MAGDY-Cocaine, MET-Methamphetamine, MOP-Opiates Inpatient Rehab Admission - Rehab Decision to Admit Inpatient rehab admission?: No
[2019-09-15] MEDS ORDERED: MAG HYDROX/AL HYDROX/SIMETH 30 ML UNIT-DOSE CUP PO PRN (12:01)
[2019-09-15] MEDS ORDERED: BISMUTH SUBSALICYLATE 262 MG/15 ML BTL PO PRN (12:01)
[2019-09-15] MEDS ORDERED: cloNIDine HCL 0.1 MG TABLET PO PRN (12:01)
[2019-09-15] MEDS ORDERED: ACETAMINOPHEN 325 MG TABLET (FP) PO PRN ×2 (12:01)
[2019-09-15] MEDS ORDERED: chlordiazePOXIDE HCL 25 MG CAPSULE PO PRN (12:01)
[2019-09-15] MEDS ORDERED: IBUPROFEN 400 MG TABLET (FP) PO PRN (12:01)
[2019-09-15] MEDS ORDERED: MAGNESIUM CITRATE 300 ML BOTTLE PO PRN (12:01)
[2019-09-15] MEDS ORDERED: MENTHOL/PHENOL 1 EACH UD MM PRN (12:01)
[2019-09-15] MEDS ORDERED: hydrOXYzine PAMOATE 25 MG CAPSULE (FP) PO PRN (12:01)
[2019-09-15] MEDS ORDERED: MAGNESIUM HYDROX 2400MG/30ML ORAL SUSPENSION 30 ML CUP PO PRN (12:01)
[2019-09-15 12:29] VITALS: BMI 22.6
[2019-09-15] MEDS ORDERED: METHADONE HCL 10 MG TABLET (FOR DETOX USE ONLY) PO ONE (14:00)
[2019-09-15] MEDS: NICOTINE 14 MG/24 HOURS TOPICAL PATCH TD SCH (14:09)
[2019-09-15] MEDS: chlordiazePOXIDE HCL 25 MG CAPSULE PO SCH ×2 (17:47→22:09)
[2019-09-15] MEDS: THIAMINE HCL 100 MG TABLET (FP) PO SCH (22:09)
[2019-09-15] MEDS: MELATONIN 5 MG TABLETS PO PRN (22:09)
[2019-09-16] MEDS: chlordiazePOXIDE HCL 25 MG CAPSULE PO SCH ×4 (06:43→22:39)
[2019-09-16] MEDS ORDERED: METHADONE HCL 5 MG TABLET (FOR DETOX USE ONLY) ONE (09:30)
[2019-09-16] MEDS ORDERED: METHADONE HCL 10 MG TABLET (FOR DETOX USE ONLY) ONE (09:30)
--- NOTE | 2019-09-16 09:51 | PN ---
[facility] CIWA - CIWA Score Nausea/Vomitin-Mild Nausea/No Vomiting Muscle Tremors: 2 Anxiety: 2 Agitation: 2 Paroxysmal Sweats: No Perspiration Orientation: 0-Oriented Tacttile Disturbances: 1-Very Mild Itch/Numbness Auditory Disturbances: 0-None Visual Disturbances: 0-None Headache: 2-Mild CIWA-Ar Total Score: 10 BHS COWS - Scale Resting Pulse: 0= [place] 80 or Below Sweatin= No chills or Flushing Restless Observation: 1= Difficult to Sit Still Pupil Size: 1= Pupils >than Normal Bone or Joint Aches: 1= Mild Discomfort Runny Nose/ Eye Tearin= Nasal Congestion GI Upset > 30mins: 1= Stomach Cramp Tremor Observation of Outstretched Hands: 2= Slight Tremor Visible Yawning Observation: 1= 1-2x During Session Anxiety or Irritability: 2=Irritable/Anxious Goose Flesh Skin: 0=Smooth Skin COWS Score: 10 BHS Progress Note (SOAP) Subjective: alert,irritable,anxious,pain in the body and back,tremor Objective: 09/16/19 09:47 Vital Signs Temperature 97.9 F 09/16/19 09:05 Pulse Rate 68 09/16/19 09:05 Respiratory Rate 18 09/16/19 09:05 Blood Pressure 131/64 09/16/19 09:05 O2 Sat by Pulse Oximetry (%) Assessment: 09/16/19 09:52 withdral symptom Plan: continue detox methadone and librium regimen
[2019-09-16] MEDS ORDERED: METHADONE (DETOX) 20 MG, METHADONE (DETOX) 5 MG PO ONE (10:00)
[2019-09-16] MEDS: PRENATAL VITAMINS W/ FOLIC ACID TABLET (FP) PO SCH (10:44)
[2019-09-16] MEDS: NICOTINE 14 MG/24 HOURS TOPICAL PATCH TD SCH (10:51)
[2019-09-16 12:45] LABS: HEMATOCRIT 37.6 % (35.4-49); HEMOGLOBIN 12.4 GM/dL (11.7-16.9); MCH 28.8 pg (25.7-33.7); MEAN CELL VOLUME 87.3 fl (80-96); MEAN PLT VOLUME 8.1 fl (7.5-11.1); PLATELET COUNT 322 K/MM3 (134-434); RBC 4.31 M/mm3 (4.00-5.60); RDW 13.7 % (11.9-15.9); WHITE BLOOD COUNT 5.9 K/mm3 (4.0-10.0)
[2019-09-16 12:55] LABS: ALBUMIN 3.1 g/dl (3.4-5.0); BLOOD UREA NITROGEN 12.9 mg/dL (7-18); CALCIUM 8.8 mg/dL (8.5-10.1); CREATININE 0.7 mg/dL (0.55-1.3); POTASSIUM 4.9 mmol/L (3.5-5.1); TOT PROT 6.3 g/dl (6.4-8.2)
[2019-09-16] MEDS: THIAMINE HCL 100 MG TABLET (FP) PO SCH (22:39)
[2019-09-17] MEDS: chlordiazePOXIDE HCL 25 MG CAPSULE PO SCH ×4 (05:06→22:23)
[2019-09-17] MEDS ORDERED: METHADONE HCL 10 MG TABLET (FOR DETOX USE ONLY) PO ONE (10:00)
[2019-09-17] MEDS: PRENATAL VITAMINS W/ FOLIC ACID TABLET (FP) PO SCH (10:20)
[2019-09-17] MEDS: NICOTINE 14 MG/24 HOURS TOPICAL PATCH TD SCH (10:20)
[2019-09-17] MEDS: METHOCARBAMOL 500 MG TABLET PO PRN ×2 (10:21→22:24)
--- NOTE | 2019-09-17 11:01 | PN ---
[facility] CIWA - CIWA Score Nausea/Vomitin-Mild Nausea/No Vomiting Muscle Tremors: 2 Anxiety: 2 Agitation: 2 Paroxysmal Sweats: No Perspiration Orientation: 0-Oriented Tacttile Disturbances: 1-Very Mild Itch/Numbness Auditory Disturbances: 0-None Visual Disturbances: 0-None Headache: 1-Very Mild CIWA-Ar Total Score: 9 BHS COWS - Scale Resting Pulse: 0= [place] 80 or Below Sweatin= No chills or Flushing Restless Observation: 1= Difficult to Sit Still Pupil Size: 1= Pupils >than Normal Bone or Joint Aches: 1= Mild Discomfort Runny Nose/ Eye Tearin= Nasal Congestion GI Upset > 30mins: 1= Stomach Cramp Tremor Observation of Outstretched Hands: 1= Tremor [place], Not Seen Yawning Observation: 1= 1-2x During Session Anxiety or Irritability: 2=Irritable/Anxious Goose Flesh Skin: 0=Smooth Skin COWS Score: 9 [facility] Progress Note (SOAP) Subjective: alert,irritable,anxious,interrupted sleep,pain in the body and back Objective: 09/17/19 10:59 Vital Signs Temperature 97.5 F L 09/17/19 09:00 Pulse Rate 78 09/17/19 09:00 Respiratory Rate 17 09/17/19 09:00 Blood Pressure 144/75 09/17/19 09:00 O2 Sat by Pulse Oximetry (%) Laboratory Last Values WBC 5.9 K/mm3 (4.0-10.0) 09/16/19 08:15 RBC 4.31 M/mm3 (4.00-5.60) 09/16/19 08:15 Hgb 12.4 GM/dL (11.7-16.9) 09/16/19 08:15 Hct 37.6 % (35.4-49) 09/16/19 08:15 MCV 87.3 fl (80-96) 09/16/19 08:15 MCH 28.8 pg (25.7-33.7) 09/16/19 08:15 MCHC 33.0 g/dl (32.0-35.9) 09/16/19 08:15 RDW 13.7 % (11.9-15.9) 09/16/19 08:15 Plt Count 322 K/MM3 (134-434) 09/16/19 08:15 MPV 8.1 fl (7.5-11.1) 09/16/19 08:15 Sodium 136 mmol/L (136-145) 09/16/19 08:15 Potassium 4.9 mmol/L (3.5-5.1) 09/16/19 08:15 Chloride 103 mmol/L (98-107) 09/16/19 08:15 Carbon Dioxide 30 mmol/L (21-32) 09/16/19 08:15 Anion Gap 4 MMOL/L (8-16) L 09/16/19 08:15 BUN 12.9 mg/dL (7-18) 09/16/19 08:15 Creatinine 0.7 mg/dL (0.55-1.3) 09/16/19 08:15 Est GFR (CKD-EPI)AfAm 129.34 09/16/19 08:15 Est GFR (CKD-EPI)NonAf 111.59 09/16/19 08:15 Random Glucose 88 mg/dL (74-106) 09/16/19 08:15 Calcium 8.8 mg/dL (8.5-10.1) 09/16/19 08:15 Total Bilirubin 1.0 mg/dL (0.2-1) 09/16/19 08:15 AST 16 U/L (15-37) 09/16/19 08:15 ALT 15 U/L (13-61) 09/16/19 08:15 Alkaline Phosphatase 80 U/L (45-117) 09/16/19 08:15 Total Protein 6.3 g/dl (6.4-8.2) L 09/16/19 08:15 Albumin 3.1 g/dl (3.4-5.0) L 09/16/19 08:15 RPR Titer Nonreactive (NONREACTIVE) 09/16/19 08:15 Assessment: 09/17/19 11:00 withdrawal symptom Plan: continue detox methadone and librium regimen
[2019-09-17] MEDS: THIAMINE HCL 100 MG TABLET (FP) PO SCH (22:23)
[2019-09-17] MEDS: MELATONIN 5 MG TABLETS PO PRN (22:23)
[2019-09-18] MEDS ORDERED: chlordiazePOXIDE HCL 10 MG CAPSULE PO PRN
[2019-09-18] MEDS ORDERED: chlordiazePOXIDE HCL 10 MG CAPSULE PO SCH (05:00)
[2019-09-18 06:41] VITALS: BP 130/69; PULSE 64; TEMP 98.6
[2019-09-18] MEDS ORDERED: chlordiazePOXIDE HCL 10 MG CAPSULE PO ONE (09:14)
[2019-09-18] MEDS ORDERED: METHADONE HCL 5 MG TABLET (FOR DETOX USE ONLY) PO ONE (09:15)
[2019-09-18] MEDS ORDERED: METHADONE HCL 5 MG TABLET (FOR DETOX USE ONLY) ONE (09:17)
[2019-09-18] MEDS ORDERED: METHADONE HCL 10 MG TABLET (FOR DETOX USE ONLY) ONE (09:18)
[2019-09-18] MEDS: PRENATAL VITAMINS W/ FOLIC ACID TABLET (FP) PO SCH (09:38)
--- NOTE | 2019-09-18 09:38 | PN ---
[facility] CIWA - CIWA Score Nausea/Vomitin-No Nausea/No Vomiting Muscle Tremors: 1-None Visible, but [place] Anxiety: 1-Mildly Anxious Agitation: 0-Normal Activity Paroxysmal Sweats: No Perspiration Orientation: 0-Oriented Tacttile Disturbances: 0-None Auditory Disturbances: 0-None Visual Disturbances: 0-None Headache: 0-None Present CIWA-Ar Total Score: 2 [facility] COWS - Scale Resting Pulse: 0= [place] 80 or Below Sweatin= No chills or Flushing Restless Observation: 0= Sits Still Pupil Size: 0= Normal to Room Light Bone or Joint Aches: 0= None Runny Nose/ Eye Tearin= None GI Upset > 30mins: 0= None Tremor Observation of Outstretched Hands: 0= None Yawning Observation: 0= None Anxiety or Irritability: 1=Feels Anxious/Irritable Goose Flesh Skin: 0=Smooth Skin COWS Score: 1 [facility] Progress Note (SOAP) Subjective: alert,anxious,no complaint Objective: 09/18/19 09:36 Vital Signs Temperature 98.6 F 09/18/19 05:06 Pulse Rate 64 09/18/19 05:06 Respiratory Rate 18 09/18/19 05:06 Blood Pressure 130/69 09/18/19 05:06 O2 Sat by Pulse Oximetry (%) Assessment: 09/18/19 09:36 no withdrawal symptom Plan: stable for discharge ,will give methadone 5 mgs po now and librium 10 ms po, followu p with after care program as arrangement
--- NOTE | 2019-09-18 09:41 | DS ---
[facility] Detox Discharge Summary Admission Date: 09/15/19 Discharge Date: 09/18/19 - History Present History: Alcohol Dependence, Cocaine Dependence, Opioid Dependence Additional Comments: alert,oriented x 3 ambulation on the unit heart normal heart sound lung clear,no wheezing no abdominal pain stable for discharge follow up with after care program as arrangement discharge time spending 30 mins Pertinent Past History: nicotine dependence bipolar disorder - Physical Exam Results Vital Signs: Vital Signs Temperature 98.6 F 09/18/19 05:06 Pulse Rate 64 09/18/19 05:06 Respiratory Rate 18 09/18/19 05:06 Blood Pressure 130/69 09/18/19 05:06 O2 Sat by Pulse Oximetry (%) Pertinent Admission Physical Exam Findings: withdrawal signs and symptom Laboratory Last Values WBC 5.9 K/mm3 (4.0-10.0) 09/16/19 08:15 RBC 4.31 M/mm3 (4.00-5.60) 09/16/19 08:15 Hgb 12.4 GM/dL (11.7-16.9) 09/16/19 08:15 Hct 37.6 % (35.4-49) 09/16/19 08:15 MCV 87.3 fl (80-96) 09/16/19 08:15 MCH 28.8 pg (25.7-33.7) 09/16/19 08:15 MCHC 33.0 g/dl (32.0-35.9) 09/16/19 08:15 RDW 13.7 % (11.9-15.9) 09/16/19 08:15 Plt Count 322 K/MM3 (134-434) 09/16/19 08:15 MPV 8.1 fl (7.5-11.1) 09/16/19 08:15 Sodium 136 mmol/L (136-145) 09/16/19 08:15 Potassium 4.9 mmol/L (3.5-5.1) 09/16/19 08:15 Chloride 103 mmol/L (98-107) 09/16/19 08:15 Carbon Dioxide 30 mmol/L (21-32) 09/16/19 08:15 Anion Gap 4 MMOL/L (8-16) L 09/16/19 08:15 BUN 12.9 mg/dL (7-18) 09/16/19 08:15 Creatinine 0.7 mg/dL (0.55-1.3) 09/16/19 08:15 Est GFR (CKD-EPI)AfAm 129.34 09/16/19 08:15 Est GFR (CKD-EPI)NonAf 111.59 09/16/19 08:15 Random Glucose 88 mg/dL (74-106) 09/16/19 08:15 Calcium 8.8 mg/dL (8.5-10.1) 09/16/19 08:15 Total Bilirubin 1.0 mg/dL (0.2-1) 09/16/19 08:15 AST 16 U/L (15-37) 09/16/19 08:15 ALT 15 U/L (13-61) 09/16/19 08:15 Alkaline Phosphatase 80 U/L (45-117) 09/16/19 08:15 Total Protein 6.3 g/dl (6.4-8.2) L 09/16/19 08:15 Albumin 3.1 g/dl (3.4-5.0) L 09/16/19 08:15 RPR Titer Nonreactive (NONREACTIVE) 09/16/19 08:15 - Treatment Hospital Course: Detox Protocol Followed, Detoxed Safely, Responded well, Discharged Condition Good Patient has Accepted a Rehab Referral to: declined - Medication Discharge Medications: Ambulatory Orders NK [No Known Home Medication] 12/25/17 - Diagnosis (1) Alcohol dependence with uncomplicated withdrawal Current Visit: Yes Status: Acute (2) Cocaine dependence Current Visit: Yes Status: Chronic Qualifiers: Substance use status: uncomplicated Qualified Code(s): F14.20 - Cocaine dependence, uncomplicated (3) Bipolar 1 disorder Current Visit: No Status: Chronic (4) Opioid dependence with withdrawal Current Visit: No Status: Chronic - AMA Did Patient Leave Against Medical Advice: No
[2019-09-18] MEDS ORDERED: METHADONE (DETOX) 10 MG, METHADONE (DETOX) 5 MG PO ONE (10:00)
[2019-09-19] MEDS ORDERED: chlordiazePOXIDE HCL 10 MG CAPSULE PO SCH (05:00)
[2019-09-19] MEDS ORDERED: METHADONE HCL 10 MG TABLET (FOR DETOX USE ONLY) PO ONE (10:00)
[2019-09-20] MEDS ORDERED: chlordiazePOXIDE HCL 10 MG CAPSULE PO ONE (05:00)
[2019-09-20] MEDS ORDERED: METHADONE HCL 5 MG TABLET (FOR DETOX USE ONLY) PO ONE (06:00)
== END 2019-09-18 09:45 | disposition home or self-care (01) | DRG 773 ==
LOC: YASAS 10:59 → Y6N 12:48
PROVIDERS: ADMIT Allergy & Immunology; ATTEND Allergy & Immunology
PROC: HZ2ZZZZ Detoxification Services for Substance Abuse Treatment (ICD-10-PCS; principal; 2019-09-15)
DX: F11.23 Opioid dependence with withdrawal (principal); F10.230 Alcohol dependence with withdrawal, uncomplicated; F14.20 Cocaine dependence, uncomplicated; F17.210 Nicotine dependence, cigarettes, uncomplicated; F31.9 Bipolar disorder, unspecified; G47.00 Insomnia, unspecified; K40.91 Unilateral inguinal hernia, without obstruction or gangrene, recurrent
CPT/HCPCS: 36415; 80053; 85027; 86593

== ENCOUNTER 2020-03-01 12:49 | Inpatient (IN) | payer OTHER ==
--- NOTE | 2020-03-01 12:56 | BHS.RME ---
Substance Use & Tx History - Substance Use History Heroin Substance amount: 1 bundle Frequency of use: Daily Substance route: Inhalation (ex: sniffing or snorting) Date of Last Use: 03/01/20 Cocaine-Crack Substance amount: 3 bags Frequency of use: Daily Substance route: Smoking Date of Last Use: 02/28/20 Alcohol Substance amount: six pack beers and 1 pint liquor Frequency of use: Daily Substance route: Oral Date of Last Use: 02/29/20 Nicotine Substance amount: 1/2 pack Frequency of use: Daily Substance route: Smoking Date of Last Use: 03/01/20 Physical/Psych/Mental Status - Behavior General Behavior: Increased activity (restlessness, agitation) Eye Contact: Normal - Cooperativeness Cooperativeness: Cooperative - Thinking Thought Processes: Tight, Logical, Goal Directed - Physical Health Problems Is patient presently having any pain?: No Does patient presently have any injuries (include location): No Does patient currently have a fever: No Is patient : No COWS - Scale Resting Pulse: 1= [place] [id number] Sweatin= Chills/Flushing Restless Observation: 1= Difficult to Sit Still Pupil Size: 0= Normal to Room Light Bone or Joint Aches: 2= Severe Diffuse Aches Runny Nose/ Eye Tearin= Runny Nose/Eyes GI Upset > 30mins: 1= Stomach Cramp Tremor Observation: 1= Tremor [place], Not Seen Yawning Observation: 1= 1-2x During Session Anxiety or Irritability: 0= None Goose Flesh Skin: 0=Smooth Skin (not yet in withdrawals, used this morning) COWS Score: 10 CIWA Nausea/Vomitin-Mild Nausea/No Vomiting Muscle Tremors: 3 Anxiety: 3 Agitation: 3 Paroxysmal Sweats: 1-Minimal Palms Moist Orientation: 0-Oriented Tacttile Disturbances: 0-None Auditory Disturbances: 1-Very Mild Visual Disturbances: 0-None Headache: 0-None Present CIWA-Ar Total Score: 12
[2020-03-01 16:49] VITALS: BMI 25.0
--- NOTE | 2020-03-01 17:00 | HP ---
COWS - Scale Resting Pulse: 1= [place] 81-100 Sweatin= Chills/Flushing Restless Observation: 1= Difficult to Sit Still Pupil Size: 0= Normal to Room Light Bone or Joint Aches: 2= Severe Diffuse Aches Runny Nose/ Eye Tearin= Runny Nose/Eyes GI Upset > 30mins: 1= Stomach Cramp Tremor Observation: 1= Tremor [place], Not Seen Yawning Observation: 1= 1-2x During Session Anxiety or Irritability: 0= None Goose Flesh Skin: 0=Smooth Skin (not yet in withdrawals, used this morning) COWS Score: 10 CIWA Score Nausea/Vomitin-Mild Nausea/No Vomiting Muscle Tremors: 3 Anxiety: 3 Agitation: 3 Paroxysmal Sweats: 1-Minimal Palms Moist Orientation: 0-Oriented Tacttile Disturbances: 0-None Auditory Disturbances: 1-Very Mild Visual Disturbances: 0-None Headache: 0-None Present CIWA-Ar Total Score: 12 - Admission Criteria OASAS Guidelines: Admission for Medically Managed Detox: Requires at least one of the followin. CIWA greater than 12 2. Seizures within the past 24 hours 3. Delirium tremens within the past 24 hours 4. Hallucinations within the past 24 hours 5. Acute intervention needed for co occurring medical disorder 6. Acute intervention needed for co occurring psychiatric disorder 7. Severe withdrawal that cannot be handled at a lower level of care (continued vomiting, continued diarrhea, abnormal vital signs) requiring intravenous medication and/or fluids 8. Admitting History and Physical - Admission Chief Complaint: 'I want to stop drinking and using heroin and get my life back together' History of Present Illness: CC: 'I want to stop drinking and using heroin and get my life back together' HPI: Jovi is a 49 year old with polysubstance abuse (alcohol, heroin, crack), who presents to [facility] for detox. He was previously admitted 09/15/19 to 09/18/19, but relapsed soon after being discharged. He is not on a methadone or suboxone program currently (previously at [facility] suboxone program 3 years ago). Substance Use History Heroin Substance amount: 1 bundle Frequency of use: Daily Substance route: Inhalation (ex: sniffing or snorting) Date of Last Use: 03/01/20 Age of first use: 41 Cocaine-Crack Substance amount: 3 bags Frequency of use: Daily Substance route: Smoking Date of Last Use: 02/28/20 Age of first use: 18 Alcohol Substance amount: six pack beers and 1 pint liquor Frequency of use: Daily Substance route: Oral Date of Last Use: 02/29/20 Age of first use: 36 Nicotine Substance amount: 1/2 pack Frequency of use: Daily Substance route: Smoking Date of Last Use: 03/01/20 Age of first use: 25 PMH: None PSH: None Psych: Bipolar disorder Social: Lives with mother Legal: None History Source: Patient Limitations to Obtaining History: No Limitations - Past Medical History Psych: Yes: Bipolar, Other (insomnia) - Past Surgical History Past Surgical History: Yes: None - Smoking History Smoking history: Current every day smoker Have you smoked in the past 12 months: Yes Aproximately how many cigarettes per day: 30 - Alcohol/Substance Use Hx Alcohol Use: No History of Substance Use: reports: Cocaine, Heroin - Social History ADL: Independent 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 History of Recent Travel: No Admission [facility] Chief Complaint: 'I want to stop drinking and using heroin and get my life back together' Allergies/Adverse Reactions: Allergies Allergy/AdvReac Type Severity Reaction Status Date / Time No Known Allergies Allergy Verified 09/15/19 12:38 Exam Limitations: No Limitations - Ebola screening Have you traveled outside of the country in the last 21 days: No Have you had contact with anyone from an Ebola affected area: No Have you been sick,other than usual withdrawal symptoms: No Do you have a fever: No - Review of Systems Constitutional: No Symptoms Reported EENT: reports: Nose Congestion. denies: Eye Pain, Ear Pain Respiratory: denies: Cough, Shortness of Breath Cardiac: reports: Lightheadedness (patient is hungry). denies: Chest Pain GI: denies: Constipated, Diarrhea, Vomiting Musculoskeletal: reports: No Symptoms Reported Integumentary: denies: Bruising, Erythema, Pruritus, Rash Neuro: denies: Headache, Numbness, Tingling Endocrine: reports: No Symptoms Reported Hematology: denies: Blood Clots Psychiatric: reports: Mood/Affect Appropiate, Orientated x3 Patient History - Patient Medical History Hx Anemia: No Hx Asthma: No Hx Chronic Obstructive Pulmonary Disease (COPD): No Hx Cancer: No Hx Cardiac Disorders: No Hx Congestive Heart Failure: No Hx Hypertension: No Hx Hypercholesterolemia: No Hx Pacemaker: No HX Cerebrovascular Accident: No Hx Seizures: No Hx Dementia: No Hx Diabetes: No Hx Gastrointestinal Disorders: No Hx Liver Disease: No Hx Genitourinary Disorders: No Hx Sexually Transmitted Disorders: No Hx Renal Disease (ESRD): No Hx Thyroid Disease: No Hx Human Immunodeficiency Virus (HIV): No (last 07/15 negative, declines testing at this time ) Hx Hepatitis C: No Hx Depression: Yes Hx Suicide Attempt: No Hx Bipolar Disorder: No Hx Schizophrenia: No - Patient Surgical History Past Surgical History: No Hx Neurologic Surgery: No Hx Cataract Extraction: No Hx Cardiac Surgery: No Hx Lung Surgery: No Hx Breast Surgery: No Hx Breast Biopsy: No Hx Abdominal Surgery: No Hx Appendectomy: No Hx Cholecystectomy: No Hx Genitourinary Surgery: No Hx Section: No Hx Orthopedic Surgery: No Anesthesia Reaction: No - PPD History Date: 09/17/19 Results: negative - Smoking Cessation Smoking history: Current every day smoker Have you smoked in the past 12 months: Yes Aproximately how many cigarettes per day: 30 Cigars Per Day: 0 Hx Chewing Tobacco Use: No Initiated information on smoking cessation: Yes 'Breaking Loose' booklet given: 03/01/20 Admission Physical Exam BHS - Vital Signs Vital Signs: Vital Signs - 24 hr 03/01/20 16:48 Temperature 97.7 F Pulse Rate 80 Respiratory 18 Rate Blood Pressure 132/85 - Physical General Appearance: Yes: No Apparent Distress, Tremorous HEENTM: Yes: Hearing grossly Normal, Normocephalic, Rhinorrhea Respiratory: Yes: Lungs Clear, No Respiratory Distress, No Accessory Muscle Use. No: Crackles, Rales, Rhonchi, Wheezing Neck: Yes: Supple Breast: Yes: Breast Exam Deferred Cardiology: Yes: Regular Rhythm, Regular Rate, S1, S2 Genitourinary: Yes: Within Normal Limits Back: Yes: Within Normal Limits Musculoskeletal: Yes: full range of Motion, Gait Steady Extremities: Yes: Within Normal Limits, Normal Range of Motion, Non-Tender Neurological: Yes: Fully Oriented, Alert, Motor Strength 5/5, Normal Mood/Affect Integumentary: Yes: Normal Color, Dry, Warm - Diagnostic (1) Alcohol dependence with uncomplicated withdrawal Current Visit: No Status: Acute (2) Bipolar 1 disorder Current Visit: No Status: Chronic (3) Cocaine dependence Current Visit: No Status: Acute Qualifiers: Substance use status: uncomplicated Qualified Code(s): F14.20 - Cocaine dependence, uncomplicated (4) Nicotine dependence Current Visit: No Status: Chronic Qualifiers: Nicotine product type: cigarettes Substance use status: uncomplicated Qualified Code(s): F17.210 - Nicotine dependence, cigarettes, uncomplicated (5) Opioid dependence with withdrawal Current Visit: No Status: Acute Cleared for Admission S - Detox or Rehab [facility] Level of Care: Medically Managed Screened but not Admitted - Documentation of Visit Screened but not Admitted: No Breathalyzer - Breathalyzer Breathalyzer: 0 POC Urine test - Test device test lot number: not applicable Urine Drug Screen - Test Device Lot number: [id number] Expiration date: 11/04/21 - Control Is test valid?: Yes - Results Drug screen NEGATIVE: No Urine drug screen results: MAGDY-Cocaine, FEN-Fentanyl, MOP-Opiates Inpatient Rehab Admission - Rehab Decision to Admit Inpatient rehab admission?: No
[2020-03-01] MEDS ORDERED: ACETAMINOPHEN 325 MG TABLET (FP) PO PRN ×2 (17:18)
[2020-03-01] MEDS ORDERED: MAG HYDROX/AL HYDROX/SIMETH 30 ML UNIT-DOSE CUP PO PRN (17:18)
[2020-03-01] MEDS ORDERED: chlordiazePOXIDE HCL 25 MG CAPSULE PO PRN (17:18)
[2020-03-01] MEDS ORDERED: BISMUTH SUBSALICYLATE 524 MG/30 ML UD PO PRN (17:18)
[2020-03-01] MEDS ORDERED: IBUPROFEN 400 MG TABLET (FP) PO PRN (17:18)
[2020-03-01] MEDS ORDERED: MAGNESIUM HYDROX 2400MG/30ML ORAL SUSPENSION 30 ML CUP PO PRN (17:18)
[2020-03-01] MEDS ORDERED: MENTHOL/PHENOL 1 EACH UD MM PRN (17:18)
[2020-03-01] MEDS ORDERED: NICOTINE POLACRILEX 2 MG GUM BUC PRN (17:18)
[2020-03-01] MEDS ORDERED: MAGNESIUM CITRATE 300 ML BOTTLE PO PRN (17:18)
[2020-03-01] MEDS ORDERED: METHOCARBAMOL 500 MG TABLET PO PRN (17:18)
[2020-03-01] MEDS ORDERED: cloNIDine HCL 0.1 MG TABLET PO PRN (17:18)
[2020-03-01] MEDS ORDERED: ONDANSETRON *ODT* 4 MG TABLET SL PRN (17:18)
[2020-03-01] MEDS: hydrOXYzine PAMOATE 25 MG CAPSULE (FP) PO SCH ×2 (18:16→22:04)
[2020-03-01] MEDS: chlordiazePOXIDE HCL 25 MG CAPSULE PO SCH ×2 (18:16→22:54)
[2020-03-01] MEDS: NICOTINE 21 MG/24 HOURS TOPICAL PATCH TD SCH (18:16)
[2020-03-01] MEDS: THIAMINE HCL 100 MG TABLET (FP) PO SCH (22:04)
[2020-03-01] MEDS: MELATONIN 5 MG TABLETS PO SCH (22:04)
[2020-03-01] MEDS ORDERED: METHADONE HCL 10 MG TABLET (FOR DETOX USE ONLY) PO ONE (23:00)
[2020-03-02] MEDS: chlordiazePOXIDE HCL 25 MG CAPSULE PO SCH ×4 (06:33→23:16)
[2020-03-02] MEDS: hydrOXYzine PAMOATE 25 MG CAPSULE (FP) PO SCH ×2 (06:34→11:16)
--- NOTE | 2020-03-02 08:24 | PN ---
Teaching Attending Note Name of Resident: Shira Story ATTENDING PHYSICIAN STATEMENT I saw and evaluated the patient. I reviewed the resident's note and discussed the case with the resident. I agree with the resident's findings and plan as documented. SUBJECTIVE: I agree with resident's subjective findings. OBJECTIVE: I agree with resident's objective findings. ASSESSMENT AND PLAN: I agree with resident's plan for detox.
[2020-03-02] MEDS ORDERED: METHADONE HCL 10 MG TABLET (FOR DETOX USE ONLY) ONE (08:59)
[2020-03-02] MEDS ORDERED: METHADONE HCL 5 MG TABLET (FOR DETOX USE ONLY) ONE (08:59)
[2020-03-02] MEDS ORDERED: METHADONE (DETOX) 20 MG, METHADONE (DETOX) 5 MG PO ONE (10:00)
[2020-03-02] MEDS ORDERED: hydrOXYzine PAMOATE 25 MG CAPSULE (FP) PO PRN (10:10)
--- NOTE | 2020-03-02 10:33 | PN ---
[facility] CIWA - CIWA Score Nausea/Vomitin-No Nausea/No Vomiting Muscle Tremors: 2 Anxiety: 2 Agitation: 3 Paroxysmal Sweats: 3 Orientation: 0-Oriented Tacttile Disturbances: 0-None Auditory Disturbances: 0-None Visual Disturbances: 0-None Headache: 0-None Present CIWA-Ar Total Score: 10 BHS COWS - Scale Resting Pulse: 0= [place] 80 or Below Sweatin= Chills/Flushing Restless Observation: 1= Difficult to Sit Still Pupil Size: 0= Normal to Room Light Bone or Joint Aches: 2= Severe Diffuse Aches Runny Nose/ Eye Tearin= None GI Upset > 30mins: 0= None Tremor Observation of Outstretched Hands: 1= Tremor [place], Not Seen Yawning Observation: 2= >3x During Session Anxiety or Irritability: 2=Irritable/Anxious Goose Flesh Skin: 0=Smooth Skin COWS Score: 9 BHS Progress Note (SOAP) Subjective: irritable agitation body aches sweats Objective: 03/02/20 10:33 Vital Signs Temperature 97.5 F L 03/02/20 09:22 Pulse Rate 51 L 03/02/20 09:22 Respiratory Rate 20 03/02/20 09:22 Blood Pressure 121/74 03/02/20 09:22 O2 Sat by Pulse Oximetry (%) 98 03/02/20 09:22 labs pending aaox3 ambulating no acute distress Assessment: 03/02/20 10:33 withdrawal sx Plan: continue detox increase fluids pending labs
[2020-03-02 10:37] LABS: HEMATOCRIT 38.4 % (35.4-49); HEMOGLOBIN 12.6 GM/dL (11.7-16.9); MCH 27.6 pg (25.7-33.7); MCHC 32.8 g/dl (32.0-35.9); MEAN CELL VOLUME 84.1 fl (80-96); MEAN PLT VOLUME 8.1 fl (7.5-11.1); PLATELET COUNT 341 K/MM3 (134-434); RBC 4.57 M/mm3 (4.00-5.60); RDW 15.3 % (11.9-15.9); WHITE BLOOD COUNT 6.2 K/mm3 (4.0-10.0)
--- NOTE | 2020-03-02 10:47 | EKG ---
Test Reason : Blood Pressure : / mmHG Vent. Rate : 054 BPM Atrial Rate : 054 BPM P-R Int : 136 ms QRS Dur : 086 ms QT Int : 432 ms P-R-T Axes : -01 046 047 degrees QTc Int : 409 ms SINUS BRADYCARDIA VOLTAGE CRITERIA FOR LEFT VENTRICULAR HYPERTROPHY ABNORMAL ECG WHEN COMPARED WITH ECG OF 02-APR-2018 17:50, NO SIGNIFICANT CHANGE WAS FOUND Confirmed by Yazan Atkins ([id number]) on 03/02/2020 10:46:33 AM Referred By: Confirmed By:Yazan Atkins
[2020-03-02 10:48] LABS: ALBUMIN 3.5 g/dl (3.4-5.0); BILIRUBIN,TOTAL 0.3 mg/dL (0.2-1); BLOOD UREA NITROGEN 12.1 mg/dL (7-18); CALCIUM 9.2 mg/dL (8.5-10.1); CREATININE 0.9 mg/dL (0.55-1.3); POTASSIUM 4.7 mmol/L (3.5-5.1); TOT PROT 6.8 g/dl (6.4-8.2)
[2020-03-02] MEDS: PRENATAL VITAMINS W/ FOLIC ACID TABLET (FP) PO SCH (10:58)
[2020-03-02] MEDS: NICOTINE 21 MG/24 HOURS TOPICAL PATCH TD SCH (10:58)
[2020-03-02] MEDS: MELATONIN 5 MG TABLETS PO SCH (23:00)
[2020-03-02] MEDS: THIAMINE HCL 100 MG TABLET (FP) PO SCH (23:00)
[2020-03-03] MEDS: chlordiazePOXIDE HCL 25 MG CAPSULE PO SCH ×2 (06:10→10:51)
[2020-03-03 06:19] VITALS: BP 107/77; PULSE 57; TEMP 97.7
--- NOTE | 2020-03-03 09:55 | PN ---
S CIWA - CIWA Score Nausea/Vomitin-No Nausea/No Vomiting Muscle Tremors: 2 Anxiety: 1-Mildly Anxious Agitation: 2 Paroxysmal Sweats: 2 Orientation: 0-Oriented Tacttile Disturbances: 0-None Auditory Disturbances: 0-None Visual Disturbances: 0-None Headache: 0-None Present CIWA-Ar Total Score: 7 BHS COWS - Scale Resting Pulse: 0= [place] 80 or Below Sweatin= Chills/Flushing Restless Observation: 0= Sits Still Pupil Size: 0= Normal to Room Light Bone or Joint Aches: 1= Mild Discomfort Runny Nose/ Eye Tearin= None GI Upset > 30mins: 0= None Tremor Observation of Outstretched Hands: 1= Tremor [place], Not Seen Yawning Observation: 1= 1-2x During Session Anxiety or Irritability: 1=Feels Anxious/Irritable Goose Flesh Skin: 0=Smooth Skin COWS Score: 5 S Progress Note (SOAP) Subjective: cannot fall asleep sweats body aches Objective: 03/03/20 09:54 Vital Signs Temperature 97.7 F 03/03/20 05:36 Pulse Rate 57 L 03/03/20 05:36 Respiratory Rate 20 03/03/20 05:36 Blood Pressure 107/77 03/03/20 05:36 O2 Sat by Pulse Oximetry (%) 100 03/03/20 05:36 Laboratory Tests 03/01/20 03/02/20 03/02/20 17:30 08:00 08:00 WBC 6.2 RBC 4.57 Hgb 12.6 Hct 38.4 MCV 84.1 MCH 27.6 MCHC 32.8 RDW 15.3 D Plt Count 341 MPV 8.1 Sodium Potassium Chloride Carbon Dioxide Anion Gap BUN Creatinine Est GFR (CKD-EPI)AfAm Est GFR (CKD-EPI)NonAf Random Glucose Calcium Total Bilirubin AST ALT Alkaline Phosphatase Total Protein Albumin Syphilis Serology Non-reactive COVID-19 (BRANDON) Not detected 03/02/20 08:00 WBC RBC Hgb Hct MCV MCH MCHC RDW Plt Count MPV Sodium 139 Potassium 4.7 Chloride 105 Carbon Dioxide 28 Anion Gap 5 L BUN 12.1 Creatinine 0.9 Est GFR (CKD-EPI)AfAm 115.83 Est GFR (CKD-EPI)NonAf 99.94 Random Glucose 92 Calcium 9.2 Total Bilirubin 0.3 AST 15 ALT 14 Alkaline Phosphatase 73 Total Protein 6.8 Albumin 3.5 Syphilis Serology COVID-19 (BRANDON) labs noted aaox3 ambulating no acute distress Assessment: 03/03/20 09:54 withdrawals Plan: continue detox melatonin d/c will order trazadone 50mg qhs
[2020-03-03] MEDS ORDERED: METHADONE HCL 10 MG TABLET (FOR DETOX USE ONLY) PO ONE (10:00)
[2020-03-03] MEDS: NICOTINE 21 MG/24 HOURS TOPICAL PATCH TD SCH (10:51)
[2020-03-03] MEDS: PRENATAL VITAMINS W/ FOLIC ACID TABLET (FP) PO SCH (10:51)
--- NOTE | 2020-03-03 14:35 | PN ---
S Progress Note Note: pt states I have things to do. pt was made aware that his detox is not completed and he is at risk of relapse, seizure, DT, OD and or loss, however pt chose to sign AMA.
--- NOTE | 2020-03-03 14:36 | DS ---
[facility] Detox Discharge Summary Admission Date: 03/01/20 - History Present History: Alcohol Dependence, Cocaine Dependence - Physical Exam Results Vital Signs: Vital Signs Temperature 97.7 F 03/03/20 05:36 Pulse Rate 57 L 03/03/20 05:36 Respiratory Rate 03/03/20 05:36 Blood Pressure 107/77 03/03/20 05:36 O2 Sat by Pulse Oximetry (%) 100 03/03/20 05:36 Pertinent Admission Physical Exam Findings: Vital Signs Temperature 97.7 F 03/03/20 05:36 Pulse Rate 57 L 03/03/20 05:36 Respiratory Rate 03/03/20 05:36 Blood Pressure 107/77 03/03/20 05:36 O2 Sat by Pulse Oximetry (%) 100 03/03/20 05:36 Laboratory Tests 03/01/20 03/02/20 03/02/20 17:30 08:00 08:00 WBC 6.2 RBC 4.57 Hgb 12.6 Hct 38.4 MCV 84.1 MCH 27.6 MCHC 32.8 RDW 15.3 D Plt Count 341 MPV 8.1 Sodium Potassium Chloride Carbon Dioxide Anion Gap BUN Creatinine Est GFR (CKD-EPI)AfAm Est GFR (CKD-EPI)NonAf Random Glucose Calcium Total Bilirubin AST ALT Alkaline Phosphatase Total Protein Albumin Syphilis Serology Non-reactive COVID-19 (BRANDON) Not detected 03/02/20 08:00 WBC RBC Hgb Hct MCV MCH MCHC RDW Plt Count MPV Sodium 139 Potassium 4.7 Chloride 105 Carbon Dioxide 28 Anion Gap 5 L BUN 12.1 Creatinine 0.9 Est GFR (CKD-EPI)AfAm 115.83 Est GFR (CKD-EPI)NonAf 99.94 Random Glucose 92 Calcium 9.2 Total Bilirubin 0.3 AST 15 ALT 14 Alkaline Phosphatase 73 Total Protein 6.8 Albumin 3.5 Syphilis Serology COVID-19 (BRANDON) aaox3 ambulating refusing any other assessment pt signed AMA. - Treatment Hospital Course: Rehab Referral Accepted - Medication Discharge Medications: Ambulatory Orders NK [No Known Home Medication] 12/25/17 - AMA Did Patient Leave Against Medical Advice: Yes
[2020-03-03] MEDS ORDERED: traZODone HCL 50 MG TABLET (FP) PO SCH (22:00)
[2020-03-04] MEDS ORDERED: chlordiazePOXIDE HCL 10 MG CAPSULE PO PRN
[2020-03-04] MEDS ORDERED: chlordiazePOXIDE HCL 10 MG CAPSULE PO SCH (05:00)
[2020-03-04] MEDS ORDERED: METHADONE (DETOX) 10 MG, METHADONE (DETOX) 5 MG PO ONE (10:00)
[2020-03-05] MEDS ORDERED: chlordiazePOXIDE HCL 10 MG CAPSULE PO SCH (05:00)
[2020-03-05] MEDS ORDERED: METHADONE HCL 10 MG TABLET (FOR DETOX USE ONLY) PO ONE (10:00)
[2020-03-06] MEDS ORDERED: chlordiazePOXIDE HCL 10 MG CAPSULE PO ONE (05:00)
[2020-03-06] MEDS ORDERED: METHADONE HCL 5 MG TABLET (FOR DETOX USE ONLY) PO ONE (06:00)
== END 2020-03-03 12:21 | disposition left against medical advice (07) | DRG 770 ==
LOC: YASAS 12:49 → Y6N 17:29
PROVIDERS: ADMIT Allergy & Immunology; ATTEND Allergy & Immunology
PROC: HZ2ZZZZ Detoxification Services for Substance Abuse Treatment (ICD-10-PCS; principal; 2020-03-01)
DX: F11.23 Opioid dependence with withdrawal (principal); F10.230 Alcohol dependence with withdrawal, uncomplicated; F14.20 Cocaine dependence, uncomplicated; F17.210 Nicotine dependence, cigarettes, uncomplicated; F31.89 Other bipolar disorder
CPT/HCPCS: 36415; 80053; 85027; 86780; 93005; 93010; U0003